=== PATIENT | female | born 1935 | race Caucasian/White ===

== ENCOUNTER → 2016-09-29 | Outpatient (CLI) | payer MEDICARE | LOC: NC 10:31 | PROVIDERS: ATTEND Family Medicine | DX: I48.91 Unspecified atrial fibrillation (principal) ==

== ENCOUNTER → 2016-10-13 | Outpatient (CLI) | payer MEDICARE | LOC: GMAB 09:44 | PROVIDERS: ATTEND Family Medicine | DX: I48.91 Unspecified atrial fibrillation (principal) ==

== ENCOUNTER → 2016-10-20 | Outpatient (CLI) | payer MEDICARE | LOC: NC 10:10 | PROVIDERS: ATTEND Family Medicine | DX: I48.91 Unspecified atrial fibrillation (principal) ==

== ENCOUNTER → 2016-10-27 | Outpatient (CLI) | payer MEDICARE | LOC: NC 09:39 | PROVIDERS: ATTEND Family Medicine | DX: I48.91 Unspecified atrial fibrillation (principal) ==

== ENCOUNTER → 2016-11-03 | Outpatient (CLI) | payer MEDICARE | END | disposition home or self-care (01) | LOC: YCHH 12:19 | PROVIDERS: ATTEND Family Medicine | DX: I48.91 Unspecified atrial fibrillation (principal) ==

== ENCOUNTER → 2016-12-01 | Outpatient (CLI) | payer MEDICARE | END | disposition home or self-care (01) | LOC: GMAB 09:55 | PROVIDERS: ATTEND Family Medicine | DX: I48.91 Unspecified atrial fibrillation (principal) ==

== ENCOUNTER → 2016-12-08 | Outpatient (CLI) | payer MEDICARE | END | disposition home or self-care (01) | LOC: NC 10:27 | PROVIDERS: ATTEND Family Medicine | DX: I48.91 Unspecified atrial fibrillation (principal) ==

== ENCOUNTER → 2016-12-22 | Outpatient (CLI) | payer MEDICARE | END | disposition home or self-care (01) | LOC: NC 10:45 | PROVIDERS: ATTEND Family Medicine | DX: I48.91 Unspecified atrial fibrillation (principal) ==

== ENCOUNTER → 2017-01-05 | Outpatient (CLI) | payer MEDICARE | END | disposition home or self-care (01) | LOC: NC 15:02 | PROVIDERS: ATTEND Family Medicine | DX: I48.91 Unspecified atrial fibrillation (principal) ==

== ENCOUNTER → 2017-02-02 | Outpatient (CLI) | payer MEDICARE | END | disposition home or self-care (01) | LOC: NC 10:33 | PROVIDERS: ATTEND Family Medicine | DX: I48.91 Unspecified atrial fibrillation (principal); E11.40 Type 2 diabetes mellitus with diabetic neuropathy, unspecified ==

== ENCOUNTER → 2017-02-04 | Outpatient (CLI) | payer MEDICARE | END | disposition home or self-care (01) | LOC: GMAB 14:12 | PROVIDERS: ATTEND Family Medicine | DX: I48.0 Paroxysmal atrial fibrillation (principal); E11.40 Type 2 diabetes mellitus with diabetic neuropathy, unspecified; G60.3 Idiopathic progressive neuropathy; E04.1 Nontoxic single thyroid nodule; R30.0 Dysuria; E55.9 Vitamin D deficiency, unspecified ==

== ENCOUNTER → 2017-02-09 | Outpatient (CLI) | payer MEDICARE ==
--- NOTE | 2017-02-09 14:21 | US ---
EXAM DESCRIPTION: Thyroid CLINICAL HISTORY: 81 years Female, NODULE COMPARISON: June 16, 2016 FINDINGS: Sonographic evaluation of the thyroid demonstrates the right lobe 4.2 x 1.5 x 1.3 cm in the left lobe 5.0 x 1.6 x 2.1 cm with a 3 mm isthmus. On the right, a 10 x 6 x 4 mm hypoechoic nodule in the upper pole is present with a 12 x 10 x 9 mm mildly hypoechoic solid nodule in the lower pole and an elongated at 13 x 8 x 6 mm nodule in the mid right lobe. These nodules are essentially unchanged from prior study in May 2016. On the left, a hypoechoic 1.4 x 1.4 x 0.6 cm wider than tall nodule in the upper pole is present. In the lower pole a 1.3 x 1.3 x 1.1 cm nodule is hypoechoic. In the mid thyroid a 9 x 10 x 11 mm nodule is hypoechoic posteriorly. IMPRESSION: Stable multinodular goiter with multiple hypoechoic small to moderate-sized nodules unchanged from prior studies. Consider one-year follow-up for stability. Electronically signed by: Dane Castillo MD 02/09/2017 2:20 PM CDT
== END | disposition home or self-care (01) ==
LOC: US 09:26
PROVIDERS: ATTEND Family Medicine
DX: E04.1 Nontoxic single thyroid nodule (principal)

== ENCOUNTER → 2017-03-02 | Outpatient (CLI) | payer MEDICARE | END | disposition home or self-care (01) | LOC: NC 11:40 | PROVIDERS: ATTEND Family Medicine | DX: I48.91 Unspecified atrial fibrillation (principal) ==

== ENCOUNTER → 2017-03-30 | Outpatient (CLI) | payer MEDICARE | LOC: NC 09:43 | PROVIDERS: ATTEND Family Medicine | DX: I48.91 Unspecified atrial fibrillation (principal) ==

== ENCOUNTER → 2017-05-25 | Outpatient (CLI) | payer MEDICARE | END | disposition home or self-care (01) | LOC: NC 09:47 | PROVIDERS: ATTEND Family Medicine | DX: I48.91 Unspecified atrial fibrillation (principal) ==

== ENCOUNTER → 2017-06-15 | Outpatient (CLI) | payer MEDICARE | END | disposition home or self-care (01) | LOC: NC 09:32 | PROVIDERS: ATTEND Family Medicine | DX: E11.40 Type 2 diabetes mellitus with diabetic neuropathy, unspecified (principal); I48.91 Unspecified atrial fibrillation; I11.0 Hypertensive heart disease with heart failure; I50.9 Heart failure, unspecified ==

== ENCOUNTER → 2017-07-20 | Outpatient (CLI) | payer MEDICARE | END | disposition home or self-care (01) | LOC: NC 11:06 | PROVIDERS: ATTEND Family Medicine | DX: I48.91 Unspecified atrial fibrillation (principal) ==

== ENCOUNTER → 2017-08-17 | Outpatient (CLI) | payer MEDICARE | END | disposition home or self-care (01) | LOC: NC 11:01 | PROVIDERS: ATTEND Family Medicine | DX: I48.91 Unspecified atrial fibrillation (principal) ==

== ENCOUNTER → 2017-09-14 | Outpatient (CLI) | payer MEDICARE | END | disposition home or self-care (01) | LOC: NC 11:38 | PROVIDERS: ATTEND Family Medicine | DX: I48.91 Unspecified atrial fibrillation (principal) ==

== ENCOUNTER → 2017-10-12 | Outpatient (CLI) | payer MEDICARE | END | disposition home or self-care (01) | LOC: NC 10:48 | PROVIDERS: ATTEND Family Medicine | DX: I48.91 Unspecified atrial fibrillation (principal) ==

== ENCOUNTER → 2017-11-10 | Outpatient (CLI) | payer MEDICARE | LOC: NC 14:30 | PROVIDERS: ATTEND Family Medicine | DX: I48.91 Unspecified atrial fibrillation (principal) ==

== ENCOUNTER → 2017-12-07 | Outpatient (CLI) | payer MEDICARE | LOC: NC 11:29 | PROVIDERS: ATTEND Family Medicine | DX: I48.91 Unspecified atrial fibrillation (principal) ==

== ENCOUNTER 2017-12-18 17:09 | Emergency (ER) | payer MEDICARE ==
--- NOTE | 2017-12-18 18:05 | RAD ---
EXAM DESCRIPTION: Hip,Right 2 Views CLINICAL HISTORY: 82 years, Female, HIP PAIN COMPARISON: None TECHNIQUE: AP and frog leg lateral views of the hip FINDINGS: Two-view right hip shows no fracture or bone lesion. Bones are osteopenic or osteoporotic. Degenerative changes are seen in the pubic symphysis. Inferior pubic ramus is questionable but no definite cortical break is seen. Depending upon patient's symptoms, CT of the pelvis might be considered. Sacrum appears intact. No hip dislocation. Normal ileum. There is no joint space abnormality observed. IMPRESSION: No definite fracture. Electronically signed by: Todd Quinones MD 12/18/2017 6:02 PM CDT
--- NOTE | 2017-12-18 18:06 | RAD ---
EXAM DESCRIPTION: Pelvis CLINICAL HISTORY: 82 years Female, HIP PAIN COMPARISON: None. TECHNIQUE: Single x-ray view of the pelvis and proximal femurs FINDINGS: No fracture. No dislocation. Diffuse bony demineralization suggests osteoporosis. Degenerative narrowing of the pubic symphysis with mild degenerative narrowing of the medial hip joints. Vascular calcification is prominent. Sacrum is obscured by overlying gas and fecal material. IMPRESSION: No fracture or dislocation. Electronically signed by: Todd Quinones MD 12/18/2017 6:03 PM CDT
[2017-12-18] MEDS ORDERED: fentaNYL CITRATE INJ 50 MCG/ML AMP IM ONE (18:12)
[2017-12-18] MEDS ORDERED: cloNIDine HCL 0.1 MG TAB PO ONE (19:25)
--- NOTE | 2017-12-18 20:52 | ED.PDOC ---
History of Present Illness - General Chief Complaint: General Stated Complaint: right hip pain Time Seen by Provider: 12/18/17 17:33 Source: patient, family Exam Limitations: no limitations Additional Information: C/O PAIN TO R HIP, SHARP, NON RADIATING. INCREASE WITH MOTION. NO FALLS OR TRAUMA BUT PT STATES SHE WOKE UP THIS AM WITH HER R LEG CROSSED OVER THE LEFT. PAIN POST ASPECT R HIP - History of Present Illness Severity: moderate Improving Factors: nothing Worsening Factors: nothing Associated Symptoms: denies symptoms Allergies/Adverse Reactions: Allergies NO KNOWN ALLERGY Allergy (Verified 12/18/17 17:42) Home Medications: Ambulatory Orders Indomethacin 50 mg PO TID PRN #14 cap 12/18/17 Methylprednisolone [Medrol Dose Damon] 4 mg PO DAILY #1 tab 12/18/17 Review of Systems - Review of Systems Constitutional: Denies: chills, fever EENTM: States: no symptoms reported Respiratory: States: no symptoms reported Cardiology: States: no symptoms reported Gastrointestinal/Abdominal: States: no symptoms reported Genitourinary: Denies: dysuria, hematuria Musculoskeletal: States: other - PAIN TO HIP. Denies: back pain, neck pain Skin: States: no symptoms reported Neurological: Denies: numbness, weakness Endocrine: States: no symptoms reported Past Medical History (General) - Patient Medical History Hx Seizures: Yes Hx Stroke: No Hx Dementia: No Hx Asthma: No Hx Cardiac Disorders: Yes - A-fib Hx Congestive Heart Failure: No Hx Pacemaker: No Hx Hypertension: Yes Hx Thyroid Disease: No Hx Diabetes: Yes - IDDM Hx Gastroesophageal Reflux: No Hx Renal Disease: No Hx Cancer: Yes - skin cancer Hx of HIV: No Hx MRSA: No Surgical History: other - Vaccination History Hx Influenza Vaccination: No Hx Pneumococcal Vaccination: - unknown - Social History Hx Tobacco Use: No - Female History Patient is a Female of Child Bearing Age (10 -59 yrs old): No Family Medical History - Family History Mother Family History: Unknown Living Status: Physical Exam - Physical Exam General Appearance: Alert, Frail, No apparent distress Eye Exam: bilateral normal Ears, Nose, Throat: hearing grossly normal, normal ENT inspection Neck: non-tender, full range of motion, supple Respiratory: lungs clear, normal breath sounds Cardiovascular/Chest: regular rate, rhythm, no murmur Gastrointestinal/Abdominal: normal bowel sounds, soft, no organomegaly Back Exam: normal inspection, no vertebral tenderness Extremity: normal range of motion, normal inspection, other - PAIN TO PALPATION R SCIATIC AREA, NO EVIDENCE OF TRAUMA, NVI, Neurologic: no motor/sensory deficits, normal mood/affect, oriented x 3 Skin Exam: normal color, warm/dry Lymphatic: no adenopathy Progress - Progress Progress: 12/18/17 20:55 FEELS BETTER, AMBULATED WITHOUT DIFFICULTY. - EKG/XRAY/CT XRAY: hip - SONIYA Departure - Departure Clinical Impression: Diabetes 1.5, managed as type 2 Sciatica Qualifiers: Laterality: right Qualified Code(s): M54.31 - Sciatica, right side Hypertension Qualifiers: Hypertension type: essential hypertension Qualified Code(s): I10 - Essential ( primary) hypertension Time of Disposition: 20:57 Disposition: Discharge to Home or Self Care Condition: Good Departure Forms: ED Discharge - Pt. Copy, Patient Portal Self Enrollment Instructions: DI for Sciatica Referrals: Cecil Vasquez MD [Primary Care Provider] - 1-2 Weeks Prescriptions: Indomethacin 50 mg PO TID PRN #14 cap PRN Reason: Pain Methylprednisolone [Medrol Dose Damon] 4 mg PO DAILY #1 tab Home Medications: Ambulatory Orders Indomethacin 50 mg PO TID PRN #14 cap 12/18/17 Methylprednisolone [Medrol Dose Damon] 4 mg PO DAILY #1 tab 12/18/17
[2017-12-18 21:20] VITALS: BP 177/99; TEMP 96; O2SAT 99
== END 2017-12-18 21:19 | disposition home or self-care (01) ==
LOC: ER 17:09
DX: M54.31 Sciatica, right side (principal); E11.9 Type 2 diabetes mellitus without complications; I10 Essential (primary) hypertension; I48.91 Unspecified atrial fibrillation; Z85.828 Personal history of other malignant neoplasm of skin
CPT/HCPCS: 36416; 72170; 73502; 82948; J3010

== ENCOUNTER → 2018-01-04 | Outpatient (CLI) | payer MEDICARE | END | disposition home or self-care (01) | LOC: NC 18:02 | PROVIDERS: ATTEND Family Medicine | DX: I48.91 Unspecified atrial fibrillation (principal) ==

== ENCOUNTER → 2018-02-01 | Outpatient (CLI) | payer MEDICARE | LOC: NC 09:06 | PROVIDERS: ATTEND Family Medicine | DX: I48.91 Unspecified atrial fibrillation (principal); E11.40 Type 2 diabetes mellitus with diabetic neuropathy, unspecified; I11.0 Hypertensive heart disease with heart failure; I50.9 Heart failure, unspecified ==

== ENCOUNTER → 2018-02-22 | Outpatient (CLI) | payer MEDICARE | LOC: NC 10:56 | PROVIDERS: ATTEND Family Medicine | DX: I48.91 Unspecified atrial fibrillation (principal) ==

== ENCOUNTER → 2018-03-22 | Outpatient (CLI) | payer MEDICARE | LOC: NC 15:25 | PROVIDERS: ATTEND Family Medicine | DX: I48.91 Unspecified atrial fibrillation (principal); I50.9 Heart failure, unspecified; I11.0 Hypertensive heart disease with heart failure ==

== ENCOUNTER 2018-04-07 09:40 | Emergency (ER) | payer MEDICARE ==
[2018-04-07 09:54] VITALS: TEMP 98.6; O2SAT 97
--- NOTE | 2018-04-07 10:46 | CT ---
EXAM DESCRIPTION: Head. CT head without contrast. CLINICAL HISTORY: Headache for 4 days. Patient on blood thinners. COMPARISON: 08/13/2013. TECHNIQUE: Multiple axial images of the head without contrast. Multiplanar reformatted images. This exam was performed according to our departmental dose-optimization program, which includes automated exposure control, adjustment of the mA and/or kV according to patient size and/or use of iterative reconstruction technique. FINDINGS: There is no CT evidence of intracranial hemorrhage, mass effect, or large territory infarction. Moderate generalized volume loss. Moderate patchy supratentorial white matter hypodensities. There are no abnormal extra-axial fluid collections. Calcific plaque in the visualized arteries. There is no acute calvarial defect. Small bilateral mastoid effusions. Completely opacified right maxillary sinus. Moderate mucosal thickening in the ethmoid air cells. IMPRESSION: 1. No CT evidence of an acute intracranial abnormality. If there is concern for an acute or subacute infarct, consider follow-up MRI. 2. Senescent changes. 3. Bilateral mastoid effusions and paranasal sinus inflammatory changes. Electronically signed by: Duane Estrada MD 04/07/2018 10:44 AM CDT
[2018-04-07 10:51] VITALS: BP 141/64
[2018-04-07] MEDS ORDERED: predniSONE 20 MG TAB PO ONE (10:55)
--- NOTE | 2018-04-07 10:58 | ED.PDOC ---
History of Present Illness - General Chief Complaint: General Time Seen by Provider: 04/07/18 09:53 Source: patient, family Exam Limitations: no limitations - History of Present Illness Initial Comments: medications 2-year-old female presenting to the emergency room secondary to persistent headache last for 5 days along with some moderately elevated blood pressures. She does take a blood thinner. It was advised by home health that she present for an evaluation. No significant altered mental status. She was seen approximately 5 days ago and is being treated for a left inner ear infection. The patient does have boggy nares. She does have some discomfort to the left periauricular area but also does have a diffuse tension headache. No nausea or vomiting. Normal oral intake. No fevers. Systolic blood pressures have been running from 150-200. Timing/Duration: 1 week Severity: moderate Improving Factors: nothing Worsening Factors: nothing Associated Symptoms: malaise Allergies/Adverse Reactions: Allergies NO KNOWN ALLERGY Allergy (Verified 12/18/17 17:42) Home Medications: Ambulatory Orders Indomethacin 50 mg PO TID PRN #14 cap 12/18/17 Methylprednisolone [Medrol Dose Damon] 4 mg PO DAILY #1 tab 12/18/17 predniSONE [Prednisone] 20 mg PO DAILY #5 tab 04/07/18 Review of Systems - Review of Systems Constitutional: States: malaise EENTM: States: ear pain, nose congestion Respiratory: States: no symptoms reported Cardiology: States: no symptoms reported Gastrointestinal/Abdominal: States: no symptoms reported Genitourinary: States: no symptoms reported Musculoskeletal: States: no symptoms reported Skin: States: no symptoms reported Neurological: States: headache Endocrine: States: no symptoms reported All other Systems: No Change from Baseline Past Medical History (General) - Patient Medical History Hx Seizures: Yes Hx Stroke: No Hx Dementia: No Hx Asthma: No Hx Cardiac Disorders: Yes - A-fib Hx Congestive Heart Failure: No Hx Pacemaker: No Hx Hypertension: Yes Hx Thyroid Disease: No Hx Diabetes: Yes - IDDM Hx Gastroesophageal Reflux: No Hx Renal Disease: No Hx Cancer: Yes - skin cancer Hx of HIV: No Hx MRSA: No Surgical History: other - Vaccination History Hx Influenza Vaccination: No Hx Pneumococcal Vaccination: No - unknown - Social History Hx Tobacco Use: No Family Medical History - Family History Mother Family History: Unknown Living Status: Physical Exam - Physical Exam General Appearance: Alert, Comfortable, No apparent distress Eye Exam: bilateral normal Ears, Nose, Throat: nasal congestion, other - the patient does have a moderate amount of soft ear wax to the left ear canal. Right ear drum shows a air-fluid level that is significant as well as some increased pressure but no obvious infection. No mastoid tenderness to palpation. No pain over the left temporal artery. Neck: full range of motion, supple Respiratory: lungs clear, normal breath sounds, no respiratory distress, no accessory muscle use Cardiovascular/Chest: normal peripheral pulses, no edema, other - regular rate Peripheral Pulses: radial,right: 2+, radial,left: 2+, dorsalis pedis,right: 2+, dorsalis pedis,left: 2+ Gastrointestinal/Abdominal: non tender, soft Rectal Exam: deferred Extremity: non-tender, no pedal edema, no calf tenderness, normal capillary refill Neurologic: hoister II-XII nml as tested, alert, normal mood/affect Skin Exam: normal color Comments: Vital Signs - 24 hr 04/07/18 04/07/18 04/07/18 09:49 10:00 10:40 Temperature 98.6 F Pulse Rate [ 88 84 84 left brachial] Respiratory 16 16 Rate Blood Pressure 176/84 141/64 [left brachial] O2 Sat by Pulse 97 97 Oximetry Progress - Progress Progress: 04/07/18 10:59 the patient's 82-year-old female presenting to emergency room with her family secondary to some persistently elevated blood pressures at home along with a headache for the last [address] scan of the head shows no evidence of any acute intracranial pathology however she does have a significant right maxillary sinusitis and some fluid levels in bilateral mastoids. the patient is already taking amoxicillin and is almost prison through the course. She should complete the course of amoxicillin. I'm going to add prednisone 20 mg by mouth every morning for the next 5 days to help reduce inflammation and hopefully help reduce the headache. For now I would recommend discontinuing the other [id number] anti-inflammatories as they are likely pushing the blood pressures up. She can take Tylenol 500 mg every 6- 8 hours for the next 4-5 days to help with any discomfort. She needs to be kept well hydrated. ER warnings were given for any evidence of any significant worsening. blood pressures do fall back into the normal range from the patient is allowed to rest and relax. Blood pressures here have fallen down to the 140s over 70s. Continue home health. Departure - Departure Clinical Impression: Tension headache Maxillary sinusitis, acute Qualifiers: Recurrence: not specified as recurrent Qualified Code(s): J01.00 - Acute maxillary sinusitis, unspecified Hypertension Qualifiers: Hypertension type: essential hypertension Qualified Code(s): I10 - Essential ( primary) hypertension Disposition: Discharge to Home or Self Care Condition: Fair Departure Forms: ED Discharge - Pt. Copy, Patient Portal Self Enrollment Instructions: Sinus Headache (DC) Diet: regular diet Activity: increase activity as tolerated Referrals: Cecil Vasquez MD [Primary Care Provider] - 1-2 Weeks Prescriptions: predniSONE [Prednisone] 20 mg PO DAILY #5 tab Home Medications: Ambulatory Orders Indomethacin 50 mg PO TID PRN #14 cap 12/18/17 Methylprednisolone [Medrol Dose Damon] 4 mg PO DAILY #1 tab 12/18/17 predniSONE [Prednisone] 20 mg PO DAILY #5 tab 04/07/18 Additional Instructions: the patient's 82-year-old female presenting to emergency room with her family secondary to some persistently elevated blood pressures at home along with a headache for the last [address] scan of the head shows no evidence of any acute intracranial pathology however she does have a significant right maxillary sinusitis and some fluid levels in bilateral mastoids. the patient is already taking amoxicillin and is almost prison through the course. She should complete the course of amoxicillin. I'm going to add prednisone 20 mg by mouth every morning for the next 5 days to help reduce inflammation and hopefully help reduce the headache. For now I would recommend discontinuing the other [id number] anti-inflammatories as they are likely pushing the blood pressures up. She can take Tylenol 500 mg every 6- 8 hours for the next 4-5 days to help with any discomfort. She needs to be kept well hydrated. ER warnings were given for any evidence of any significant worsening. blood pressures do fall back into the normal range from the patient is allowed to rest and relax. Blood pressures here have fallen down to the 140s over 70s. Continue home health.
== END 2018-04-07 11:15 | disposition home or self-care (01) ==
LOC: ER 09:40
DX: G44.209 Tension-type headache, unspecified, not intractable (principal); J01.00 Acute maxillary sinusitis, unspecified; I10 Essential (primary) hypertension; I48.91 Unspecified atrial fibrillation; E11.9 Type 2 diabetes mellitus without complications; Z85.828 Personal history of other malignant neoplasm of skin

== ENCOUNTER → 2018-04-19 | Outpatient (CLI) | payer MEDICARE | LOC: NC 17:18 | PROVIDERS: ATTEND Family Medicine | DX: I48.91 Unspecified atrial fibrillation (principal) ==

== ENCOUNTER → 2018-05-25 | Outpatient (CLI) | payer MEDICARE | LOC: NC 10:15 | PROVIDERS: ATTEND Family Medicine | DX: R30.0 Dysuria (principal) ==

== ENCOUNTER → 2018-05-31 | Outpatient (CLI) | payer MEDICARE | LOC: NC 16:30 | PROVIDERS: ATTEND Family Medicine | DX: I48.91 Unspecified atrial fibrillation (principal) ==

== ENCOUNTER → 2018-06-14 | Outpatient (CLI) | payer MEDICARE | LOC: NC 09:58 | PROVIDERS: ATTEND Family Medicine | DX: R30.0 Dysuria (principal) ==

== ENCOUNTER → 2018-06-25 | Outpatient (CLI) | payer MEDICARE | LOC: NC 09:41 | PROVIDERS: ATTEND Family Medicine | DX: I50.9 Heart failure, unspecified (principal); R30.0 Dysuria ==

== ENCOUNTER → 2018-06-28 | Outpatient (CLI) | payer MEDICARE | LOC: GMAE 14:59 | PROVIDERS: ATTEND Family Medicine | DX: I10 Essential (primary) hypertension (principal) ==

== ENCOUNTER → 2018-08-03 | Outpatient (CLI) | payer MEDICARE | LOC: NC 09:43 | PROVIDERS: ATTEND Family Medicine | DX: I48.91 Unspecified atrial fibrillation (principal) ==

== ENCOUNTER → 2018-08-31 | Outpatient (CLI) | payer MEDICARE | LOC: NC 10:07 | PROVIDERS: ATTEND Family Medicine | DX: I48.91 Unspecified atrial fibrillation (principal) ==

== ENCOUNTER → 2018-09-27 | Outpatient (CLI) | payer MEDICARE | LOC: NC 12:23 | PROVIDERS: ATTEND Family Medicine | DX: I48.91 Unspecified atrial fibrillation (principal) ==

== ENCOUNTER → 2018-10-04 | Outpatient (CLI) | payer MEDICARE | LOC: NC 11:00 | PROVIDERS: ATTEND Family Medicine | DX: E11.40 Type 2 diabetes mellitus with diabetic neuropathy, unspecified (principal) ==

== ENCOUNTER → 2018-10-26 | Outpatient (CLI) | payer MEDICARE | LOC: GMAE 09:39 | PROVIDERS: ATTEND Family Medicine | DX: I48.91 Unspecified atrial fibrillation (principal) ==

== ENCOUNTER → 2018-11-22 | Outpatient (CLI) | payer MEDICARE | LOC: NC 10:43 | PROVIDERS: ATTEND Family Medicine | DX: I48.91 Unspecified atrial fibrillation (principal) ==

== ENCOUNTER 2018-12-01 17:38 | Inpatient (IN) | payer MEDICARE ==
--- NOTE | 2018-12-01 18:41 | RAD ---
EXAM DESCRIPTION: Pelvis CLINICAL HISTORY: fall with pain and inability to get up COMPARISON: None FINDINGS: Single view(s) submitted. There is a mildly displaced fracture of the left superior pubic ramus and probable fracture of the left inferior pubic ramus. No other fracture or dislocation is seen. IMPRESSION: Left pubic rami fractures. Electronically signed by: Isma Abdi 12/01/2018 6:38 PM [facility]
--- NOTE | 2018-12-01 18:42 | RAD ---
EXAM: 2 VIEWS LEFT HIP RADIOGRAPHS CLINICAL INDICATION: Pain post fall COMPARISON: None. FINDINGS: The proximal left femur is intact. Acute appearing left superior ramus fracture possibly extending into the left acetabulum. No radiopaque soft tissue foreign bodies. IMPRESSION: Acute appearing left superior pubic ramus fracture possibly extending into the acetabulum. The proximal left femur is intact. Electronically signed by: Aldair Osborne MD 12/01/2018 6:39 PM [employer]HA[employer] HEL[employer]
[2018-12-01] MEDS ORDERED: MORPHINE SULFATE INJ 10 MG/ML VIAL IV ONE (18:46)
--- NOTE | 2018-12-01 19:35 | CT ---
NONCONTRAST PELVIC CT EXAMINATION. HISTORY: Pain. Fracture? COMPARISONS: Today's pelvic radiograph. PROCEDURE: Using helical technique, thin section axial images were performed through the pelvis without the administration of intravenous or oral contrast material. FINDINGS: Nondisplaced fractures involving the medial inferior left pubic ramus and base of the left superior pubic ramus. The left superior ramus nondisplaced fracture extends into the mid to lower aspect of the left acetabulum. The proximal femurs are intact. Subtle minimally displaced fracture of the inferior left sacral alum probably extending into nondisplaced left sacroiliac joint. Severe degenerative disease partially visualized lower lumbosacral spine with 7 mm degenerative L5/S1 spondylolisthesis. Bony L5/S1 neural foramina are moderately to severely narrowed. No free pelvic fluid or pelvic wall hematoma. Martin catheter is in the nondistended urinary bladder. The atrophied uterus appears grossly normal. No groin hernia or pelvic floor hernia. Proximal right femur is intact. IMPRESSION: 1. Nondisplaced fractures of the left inferior and superior pubic rami. Nondisplaced superior left pubic ramus fracture appears to extend into the mid and lower aspect of the left acetabulum. 2. Subtle minimally displaced fracture in the inferior left sacral alum probably extending into the nondisplaced left sacroiliac joint. The pubic symphysis is intact. 3. Severe degenerative disease at the L5/S1 level as described above. If clinical concern persists, post intravenous contrast and post oral contrast abdomen and pelvic CT examination should be performed for further evaluation. This exam was performed according to our departmental dose-optimization program, which includes automated exposure control, adjustment of the mA and/or kV according to patient size and/or use of iterative reconstruction technique. Electronically signed by: Aldair Osborne MD 12/01/2018 7:31 PM [employer] PER[employer]MAN[employer]INE[employer]
[2018-12-01] MEDS ORDERED: SOD CHL 3% *HYPERTONIC* 500ML 160 ML IVS ONE (20:08)
--- NOTE | 2018-12-01 20:18 | ED.PDOC ---
History of Present Illness - General Chief Complaint: Lower Extremity Injury Stated Complaint: L hip discomfort Time Seen by Provider: 12/01/18 17:50 Source: patient Exam Limitations: no limitations - History of Present Illness Initial Comments: the patient's 82-year-old female presenting to emergency room after having had a fall at home. She tripped over the dog and landed on her back left side. She was unable to get up after. The patient apparently has a history of some congestive heart failure and atrial fibrillation as well as diabetes and some mild dementia. The patient is pleasant and cooperative. She moves the ankle well and is able to move the knee without difficulty. She has no tenderness to palpation over the lateral femur. Pain is primarily in the left inguinal area. She did not have any other injuries other than a small abrasion to her right forearm from her dog. The patient is family of our EMS personnel. The patient is having significant pain. Initial blood pressures do reflect that. She is on Coumadin. Timing/Duration: momentarily Severity: severe Improving Factors: immobilization Worsening Factors: movement Associated Symptoms: denies symptoms Allergies/Adverse Reactions: Allergies NO KNOWN ALLERGY Allergy (Verified 12/18/17 17:42) Home Medications: Ambulatory Orders Indomethacin 50 mg PO TID PRN #14 cap 12/18/17 Methylprednisolone [Medrol Dose Damon] 4 mg PO DAILY #1 tab 12/18/17 predniSONE [Prednisone] 20 mg PO DAILY #5 tab 04/07/18 Review of Systems - Review of Systems Constitutional: States: no symptoms reported EENTM: States: no symptoms reported Respiratory: States: no symptoms reported Cardiology: States: no symptoms reported Gastrointestinal/Abdominal: States: no symptoms reported - inguinal pain Genitourinary: States: no symptoms reported Musculoskeletal: States: see HPI Skin: States: no symptoms reported Neurological: States: no symptoms reported Endocrine: States: no symptoms reported All other Systems: No Change from Baseline Past Medical History (General) - Patient Medical History Hx Seizures: No Hx Stroke: No Hx Dementia: No Hx Asthma: No Hx of COPD: No Hx Cardiac Disorders: Yes Hx Congestive Heart Failure: No Hx Pacemaker: No Hx Hypertension: Yes Hx Thyroid Disease: No Hx Diabetes: Yes Hx Gastroesophageal Reflux: No Hx Renal Disease: No Hx Cancer: No Hx of HIV: No Hx Hepatitis C: No Hx MRSA: No - Vaccination History Hx Tetanus, Diphtheria Vaccination: No Hx Influenza Vaccination: No Hx Pneumococcal Vaccination: No - Social History Hx Tobacco Use: No Hx Chewing Tobacco Use: No Hx Alcohol Use: No Hx Substance Use: No Hx Substance Use Treatment: No Hx Depression: No Hx Physical Abuse: No Hx Emotional Abuse: No Hx Suspected Abuse: No - Female History Patient : No Family Medical History - Family History Mother Family History: Unknown Living Status: Hx Cardiac Disease: Yes - mom Physical Exam - Physical Exam General Appearance: Alert, Frail, Obvious distress - from pain Eye Exam: bilateral normal Ears, Nose, Throat: hearing grossly normal, normal ENT inspection Neck: full range of motion, supple Respiratory: lungs clear, normal breath sounds, no respiratory distress, no accessory muscle use Cardiovascular/Chest: normal peripheral pulses, no edema, other - regular rate Peripheral Pulses: radial,right: 2+, radial,left: 2+, dorsalis pedis,right: 2+, dorsalis pedis,left: 2+ Gastrointestinal/Abdominal: non tender, soft Rectal Exam: other - the patient does have pain to palpation over the symphysis pubis. Extremity: normal range of motion - passive range of motion of the left hip is preserved. 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 They're not yet in the computer. Progress - Progress Progress: 12/01/18 20:20 the patient is an 82-year-old female presenting to the emergency room after having tripped over her dog. She appears to have sustained several nondisplaced or minimally displaced pelvic fractures on the left side. Please see CT report for details. The patient is currently unable to perform her activities of daily living and she is requiring some IV pain medications. She is going to be placed in the hospital for these reasons. Additionally the patient is found to have significant hyponatremia and is receiving 160 cc total of 3% saline slowly tonight. She will need to have a sodium level rechecked in the morning. Source of the hyponatremia is uncertain however. She does take a diuretic and she does take Dilantin which may be contributing. Chest x-ray is pending at this time as well as the urinalysis. Martin catheter is in place secondary to pain with getting up to go to the bathroom. The patient is on Coumadin and INR is slightly subtherapeutic at 1.8 but increasing the dose may not be advisable for a few days. The patient is a diabetic and is going to require diabetes management while in house. Orthopedics can be consulted in the morning for plan of care for her rehabilitation schedule. Obviously the patient is not a good candidate for any real surgical intervention and will likely require conservative care. Admitted for care of problems above. - Results/Orders Results/Orders: Laboratory Tests 12/01/18 12/01/18 12/01/18 18:09 18:09 18:09 WBC 13.2 H RBC 4.08 L Hgb 12.8 Hct 37.9 MCV 92.9 MCH 31.5 H MCHC 33.9 RDW 13.8 Plt Count 223 MPV 8.8 Absolute Neuts (auto) 10.00 H Absolute Lymphs (auto) 1.90 Absolute Monos (auto) 0.90 H Absolute Eos (auto) 0.30 Absolute Basos (auto) 0.10 Neutrophils % 75.9 Lymphocytes % 14.5 L Monocytes % 6.7 Eosinophils % 2.1 Basophils % 0.8 PT 17.8 H INR 1.79 H PTT (SP) 28.3 Sodium 127 L Potassium 4.1 Chloride 92 L Carbon Dioxide 24 Anion Gap 15.1 BUN 21 H Creatinine 0.75 BUN/Creatinine Ratio 28.0 H Random Glucose 238 H Serum Osmolality 265.9 L Calcium 9.1 Total Bilirubin 0.7 AST 25 ALT 25 Alkaline Phosphatase 73 Serum Total Protein 6.8 Albumin 3.7 Globulin 3.1 Albumin/Globulin Ratio 1.2 Departure - Departure Clinical Impression: Uncontrolled pain, Inability to perform activities of daily living, Hyponatremia, Insulin dependent diabetes mellitus Multiple pelvic fractures Qualifiers: Encounter type: initial encounter Fracture type: closed Fracture alignment: with stable disruption of pelvic ring Qualified Code(s): S32.810A - Multiple fractures of pelvis with stable disruption of pelvic ring, initial encounter for closed fracture Fall at home Qualifiers: Encounter type: initial encounter Qualified Code(s): W19.XXXA - Unspecified fall, initial encounter; Y92.009 - Unspecified place in unspecified non- institutional (private) residence as the place of occurrence of the external cause Disposition: Admit Patient Departure Forms: ED Discharge - Pt. Copy, Patient Portal Self Enrollment Home Medications: Ambulatory Orders Indomethacin 50 mg PO TID PRN #14 cap 12/18/17 Methylprednisolone [Medrol Dose Dmaon] 4 mg PO DAILY #1 tab 12/18/17 predniSONE [Prednisone] 20 mg PO DAILY #5 tab 04/07/18 Decision To Admit - Decistion To Admit Decision to Admit Reason: Medical Nature Decision to Admit Date: 12/01/18 Decision to Admit Time: 20:25
--- NOTE | 2018-12-01 21:02 | RAD ---
EXAM: AP CHEST RADIOGRAPH CLINICAL INDICATION: Hyponatremia. COMPARISON: Compared to the chest radiograph from August 13, 2013. FINDINGS: Today's radiograph is rotated to the left. Cardiac size and pulmonary vasculature remain normal. Unchanged left basilar scar. The lungs are otherwise clear. No pleural effusions. No pneumothorax, pneumomediastinum or free peritoneal gas. No hilar or mediastinal lymphadenopathy. No mediastinal widening. Unchanged remotely healed proximal left humeral fracture. Partially visualized degenerative disease throughout the thoracic spine. Bones are intact on this single view. IMPRESSION: Unchanged portable AP chest radiograph. No acute cardiopulmonary disease. Electronically signed by: Aldair Osborne MD 12/01/2018 8:59 PM OPTIMIZATION SPECIALIST
[2018-12-01] MEDS ORDERED: SODIUM CHLORIDE 0.9% (FLUSH) 10 ML SYG IV PRN (21:26)
[2018-12-01] MEDS ORDERED: IV SET AND CAP CHANGE INJ INJ SCH (21:30)
--- NOTE | 2018-12-01 21:33 | HP ---
SUPERVISING PHYSICIAN: Deshaun Scott MD CHIEF COMPLAINT: Left sided hip pain. HISTORY OF PRESENT ILLNESS: This is an 82-year-old female who presented to the Emergency Room status post fall. She apparently tripped over her dog and landed on her left backside. She was unable to get up after that, but made it to the Emergency Room. Her family members are some EMS personnel. She does have a history of congestive heart failure and atrial fibrillation on chronic anticoagulation. In the Emergency Room, her workup included films. CT scan of the pelvis showed nondisplaced fractures of the left inferior and superior pubic rami. The nondisplaced superior left pubic ramus fracture appears to be extended into the mid and lower aspect of the left acetabulum. There is subtle minimally displaced fracture in the inferior left sacral alum, probably extending into the nondisplaced left sacroiliac joint. The pubic symphysis bone is still intact. She also was noted to have a low sodium of 127. Coag was 92, BUN 21, glucose 238, INR 1.79. White blood cell count 13.2, hemoglobin 12.8, platelet count 223. She was referred for admission for pain control and a morning consultation with orthopedic surgeon regarding her fractures. At time of examination, the patient is not complaining of any significant pain, however, with movement, she does have some left pain, mainly in the left inguinal area. Vital signs are acceptable. PAST MEDICAL HISTORY: 1. Congestive heart failure. 2. Atrial fibrillation on chronic warfarin therapy. 3. Diabetes. 4. Dementia. MEDICATIONS: 1. Digoxin 0.125 mg p.o. daily. 2. Lasix 40 mg p.o. daily. 3. Lantus 17 units subcutaneously daily. 4. Mobic 7.5 mg p.o. b.i.d. 5. Metoprolol 50 mg p.o. daily. 6. Multivitamin p.o. daily. 7. Phenytoin 100 mg p.o. 3 times daily. 8. Potassium 10 mEq p.o. daily. 9. Pravastatin 40 mg p.o. daily. 10. Ramipril 5 mg p.o. daily. 15. Warfarin 5 mg p.o. daily. ALLERGIES: NO KNOWN DRUG ALLERGIES. FAMILY HISTORY: Reviewed and noncontributory. SOCIAL HISTORY: Noncontributory. Nonsmoker, no illicit drugs. REVIEW OF SYSTEMS: CONSTITUTIONAL: No fever or chills. HEENT: Denies sore throat or nasal congestion. NECK: Denies neck pain. RESPIRATORY: No shortness of breath, cough, hemoptysis. CARDIOVASCULAR: Denies chest pain, palpitations or peripheral edema. GASTROINTESTINAL: No nausea, vomiting, diarrhea, constipation or abdominal pain. GENITOURINARY: No dysuria, frequency or flank pain. MUSCULOSKELETAL: Positive for left hip pain status post fall. No other muscle cramp ing or joint pain is noted. ENDOCRINE: No polydipsia, polyuria or polyphagia. No heat or cold intolerance. NEUROLOGIC: Positive for chronic confusion. She did not have any syncope or loss of consciousness, no seizures. PHYSICAL EXAMINATION: VITAL SIGNS: Blood pressure 150/82. Heart rate 93. Respiratory rate 18. Temperature 98.2. Oxygen saturation 94%. GENERAL: Ms. Sorensen is an 82-year-old female in no active distress currently. HEENT: Normocephalic, atraumatic. Pupils are equal and reactive. No nasal drainage. Throat with moist mucosa. NECK: Supple. Midline trachea. No jugular venous distention. CHEST: Symmetrical with equal rise and fall of the chest with inspiration and expiration. Lung sounds are clear to auscultation bilaterally. CARDIOVASCULAR: Regular rate and rhythm. Normal S1, S2. ABDOMEN: Soft. Positive bowel sounds. EXTREMITIES: Lower extremities with no edema. There is no rotation of the left lower extremity. Pulses are positive. There is some ankle edema bilaterally. Tenderness to palpation primarily left inguinal area. LABORATORY: Labs and films are as discussed in history of present illness. ASSESSMENT: 1. Status post fall resulting in nondisplaced pubic rami fractures and left acetabular fracture, nondisplaced. 2. Hypertension. 3. History of congestive heart failure without an acute exacerbation. 4. Hyponatremia secondary to chronic congestive heart failure. 5. Diabetes mellitus, type 2. 6. Chronic dementia. PLAN: At this time, the patient will be admitted to the Floor with pain control medication. I will resume her home medications which include her anticoagulation for her chronic atrial fibrillation. Hemoglobin is stable and not showing any signs of bleeding at this time. Vital signs are acceptable. I ordered a proton pump inhibitor for GI ulcer prophylaxis as well. Sliding scale insulin has been ordered for the duration of her hospitalization. Dr. Hernandez will be contacted in the morning for consultation. The patient did receive some 3% saline in the Emergency Room. I have discontinued this and started normal saline at 75 mL per hour. Recheck labs in the morning. #[id number] [facility]
[2018-12-01] MEDS: SODIUM CHLORIDE 0.9% 1000ML 1,000 ML IVS PRN (22:10)
[2018-12-01] MEDS ORDERED: GLUCAGON INJ 1 MG VIAL SUBCU PRN (22:47)
[2018-12-01] MEDS ORDERED: DEXTROSE 50% 25 GM/50 ML SYG IV PRN (22:47)
[2018-12-02] MEDS ORDERED: SODIUM CHLORIDE 0.9% 100ML 100 ML IVPB ONE ×2 (05:21→19:11)
[2018-12-02] MEDS ORDERED: PANTOPRAZOLE SODIUM IV 40 MG VIAL ONE ×2 (05:21→19:11)
[2018-12-02] MEDS: PANTOPRAZOLE INJECTION 40 MG in SODIUM CHLORIDE 0.9% 100ML 100 ML IVPB SCH (06:24)
[2018-12-02] MEDS: INSULIN LISPRO 100 UNITS/ML PEN SUBCU SCH ×4 (08:07→20:54)
[2018-12-02] MEDS: MORPHINE SULFATE INJ 10 MG/ML VIAL IV PRN ×2 (09:10→20:32)
[2018-12-02] MEDS: INSULIN DETEMIR 100 UNITS/ML PEN SUBCU SCH (10:00)
[2018-12-02] MEDS: PHENYTOIN SODIUM CAP EXTENDED 100 MG CAP PO SCH ×3 (10:02→20:34)
[2018-12-02] MEDS: MULTIPLE VITAMINS W/ MINERALS 1 EA TAB PO SCH (10:03)
[2018-12-02] MEDS: METOPROLOL SUCCINATE XL 50 MG TAB PO SCH (10:03)
[2018-12-02] MEDS: DIGOXIN 0.125 MG TAB PO SCH (10:03)
[2018-12-02] MEDS: RAMIPRIL 5 MG CAP PO SCH (10:03)
[2018-12-02] MEDS: MELOXICAM 7.5 MG TAB PO SCH ×2 (10:09→20:34)
--- NOTE | 2018-12-02 10:41 | PN ---
SUPERVISING PHYSICIAN: Deshaun Scott MD DATE: 12/02/18 SUBJECTIVE: The patient states her pain is controlled and she just got some pain medication. Otherwise, there is no significant change from last night. OBJECTIVE: VITAL SIGNS: Blood pressure 174/78. Heart rate 96. Respiratory rate 18. Temperature 97.6. Oxygen saturation 95%. GENERAL: Ms. Sorensen is an 82-year-old female in no active distress. NEUROLOGIC: The patient is chronically confused, but there is no acute deficit. LUNGS: Clear. CARDIOVASCULAR: Regular rate and rhythm. Normal S1, S2. ABDOMEN: Soft. Positive bowel sounds. EXTREMITIES: Lower extremities with pulses 2+. Capillary refill is less than 2 seconds. LABORATORY: Normal white count this morning of 8.7, hemoglobin 11.5, hematocrit 34.1, platelet count 188. She still has a sodium of 127, potassium 4.0, chloride 95, CO2 25, BUN 14, creatinine 0.44, glucose 234, calcium 8.4. I checked her digoxin level and it is 0.7. Phenytoin level is less than 25. ASSESSMENT: 1. Fall resulting in nondisplaced pubic rami fractures and left acetabular fracture, which is nondisplaced. 2. Hypertension. 3. History of congestive heart failure without an acute exacerbation. 4. Hyponatremia. 5. Diabetes mellitus, type 2. 6. Chronic dementia. PLAN: We will continue with current treatment. We did call Dr. Hernandez's office this morning to inform him of the consultation as the Emergency Room did not notify him last night. We will discuss with him once he makes rounds. [facility][id number] [facility]
[2018-12-02] MEDS: SODIUM CHLORIDE 0.9% 1000ML 1,000 ML IVS PRN (12:32)
[2018-12-02] MEDS: WARFARIN SODIUM 5 MG TAB PO SCH (12:32)
[2018-12-02] MEDS: PRAVASTATIN SODIUM 20 MG TAB PO SCH (20:34)
[2018-12-03] MEDS: SODIUM CHLORIDE 0.9% 1000ML 1,000 ML IVS PRN ×2 (01:31→15:23)
[2018-12-03] MEDS: PANTOPRAZOLE INJECTION 40 MG in SODIUM CHLORIDE 0.9% 100ML 100 ML IVPB SCH (06:04)
[2018-12-03] MEDS: INSULIN LISPRO 100 UNITS/ML PEN SUBCU SCH ×4 (07:06→20:59)
--- NOTE | 2018-12-03 08:05 | CONS ---
CHIEF COMPLAINT: Left hip pain status post fall. HISTORY OF PRESENT ILLNESS: Ms. Sorensen is an 82-year-old female who presented to the Emergency Room after a fall that she had on the day of presentation of 12/01/18. She had the acute onset of pain at that time. Today, Ms. Sorensen complains of pain isolated to the left side with a very small amount of discomfort in the left arm. She denies any radiation of pain, denies any neurologic symptoms or other injuries associated with this fall. PAST SURGICAL HISTORY: 1. Congestive heart failure. 2. Atrial fibrillation. 3. Diabetes. 4. Dementia. MEDICATIONS: 1. Digoxin. 2. Lasix. 3. Lantus. 4. Mobic. 5. Metoprolol. 6. Dilantin. 7. Potassium. 8. Pravastatin. 9. Ramipril. 10. Warfarin. ALLERGIES: NO KNOWN DRUG ALLERGIES. FAMILY HISTORY: None pertinent to today's complaint. SOCIAL HISTORY: The patient does not drink, smoke or use any illicit drugs. REVIEW OF SYSTEMS: Negative except as indicated in the History of Present Illness. PHYSICAL EXAMINATION: VITAL SIGNS: Blood pressure 140/81. Heart rate 85. Respirations 17. Temperature 98. O2 saturation 95% on room air. MENTAL STATUS: The patient is awake, alert, and is able to give a good history and participate in the physical. The patient is oriented to person, place and time. SKIN: Normal tone and turgor. HEENT: Normocephalic, atraumatic. Pupils equal, round and reactive. Mucosal membranes are moist. NECK: Normal range of motion. No thyromegaly, no lymphadenopathy. CHEST: Normal respiratory excursion. CARDIAC: Regular rate and rhythm. No murmurs, rubs or gallops. MUSCULOSKELETAL: The bilateral upper extremities show full painless range of motion. She has intact sensation. They are warm and well perfused. There are no deformities. There is no obvious bruising. Sensation is intact. Strength is 5/5. The right lower extremity shows no deformity and no pain. She has intact sensation in the extremity and it is warm and well perfused. The left lower extremity shows no deformity. Sensation is intact. It is warm and well perfused. She is able to fully plantar flex and dorsiflex with 5/5 strength. She does have some pain with resisted hip flexion and extension. IMAGING: CT scan was performed and shows nondisplaced fractures of the superior and inferior pubic ramus. There is a subtle defect on the posterior left sacral ala. ASSESSMENT: 1. Pelvic rim fracture. PLAN: The fracture anatomy appears to be stable. The best course for her would likely be nonoperative treatment with partial weightbearing. We will get her up on a walker with partial weightbearing and we will take x-rays after her ambulation. She will continue to progress as her healing allows. #[id number] [facility]
[2018-12-03] MEDS: MORPHINE SULFATE INJ 10 MG/ML VIAL IV PRN ×3 (09:05→22:06)
--- NOTE | 2018-12-03 09:21 | PN ---
DATE: 12/03/18 SUBJECTIVE: This morning, the patient states she feels a little bit of soreness in her pelvic region and also some slow onset left upper arm pain. She endorses not knowing if this was from the previous fall or not, but just noticed it this morning. Otherwise, she seems to be slightly slow to respond, most likely at baseline given her age. Upon chart review and discussion with the primary care physician, I have been notified that her son has had difficulty providing her with adequate care, as he works more often that he is at home. Her PCP and nurse are concerned about her safety at home. Dr. Hernandez in the room upon my examination, see his plans below. REVIEW OF SYSTEMS: GENERAL: She states she feels well overall, denies any concerning new issues today. CHEST: No shortness of breath, no chest wall tenderness or pain. CARDIOVASCULAR: Denies chest pain, denies palpitations, denies any swelling. ABDOMEN: Denies any abdominal pain, no bowel movement since admission. NEUROLOGIC: Denies confusion, denies headache. MUSCULOSKELETAL: Pelvic and hip soreness, left upper arm soreness. OBJECTIVE: VITAL SIGNS: Temperature 98.1. Pulse 91. Blood pressure 158/81. O2 saturation 95% on room air. GENERAL: No acute distress, lying comfortably in bed. CHEST: Lungs clear to auscultation, no wheezes or crackles. CARDIOVASCULAR: Normal rhythm, slight tachycardia, no murmurs. MUSCULOSKELETAL: Moving all extremities normally, very minimal soreness to left upper arm with deep and firm palpation, some soreness with active abduction of the left shoulder, pulses normal. NEUROLOGIC: Alert and oriented to person, place and time, slow to respond and easily carries conversation. LABORATORY: WBCs 10.1, hemoglobin 11.3, platelet count 184. PT 19.6, INR 1.07. Sodium 127, stable. Potassium 3.9, chloride 97, CO2 22, BUN 11, creatinine less than 0.4. Serum osmolality low at 254.2. IMAGING: CT scan was performed and shows nondisplaced fractures of the superior and inferior pubic ramus. There is a subtle defect on the posterior left sacral ala. ASSESSMENT: 1. Fall resulting in nondisplaced pubic rami fractures and left acetabular fracture, which is nondisplaced. 2. Chronic hypertension. 3. History of congestive heart failure without an acute exacerbation. 4. Chronic hyponatremia. 5. Diabetes mellitus, type 2. 6. Chronic dementia. 7. Chronic atrial fibrillation on warfarin. PLAN: After discussion with Dr. Hernandez along with the patient, her images seem to show that her fractures are stable. Per Dr. Hernandez, she will undergo physical therapy today to assess her strength and stability with partial weightbearing. After physical therapy, we can obtain some x-rays to confirm no displacement of the fractures. We are continuing her home medications as of now: digoxin for cardiac abnormalities, continuing her Levemir 17 units daily along with sliding scale insulin, phenytoin, as well as statin and blood pressure medication. She is also on anticoagulation with warfarin 5 mg daily. After discussing the case with her primary care physician, Dr. Scott, it has come to our attention that she is very unlikely to be safe at her home by herself. Her son does take care of her, but he is not at home very often due to his work schedule. Per the PCP and the nurse, she would likely be safer in a custodial at this point in time. #[id number] [facility]
[2018-12-03] MEDS: INSULIN DETEMIR 100 UNITS/ML PEN SUBCU SCH (09:44)
[2018-12-03] MEDS: MELOXICAM 7.5 MG TAB PO SCH ×2 (09:49→20:45)
[2018-12-03] MEDS: MULTIPLE VITAMINS W/ MINERALS 1 EA TAB PO SCH (09:49)
[2018-12-03] MEDS: RAMIPRIL 5 MG CAP PO SCH (09:51)
[2018-12-03] MEDS: DIGOXIN 0.125 MG TAB PO SCH (09:51)
[2018-12-03] MEDS: METOPROLOL SUCCINATE XL 50 MG TAB PO SCH (09:51)
[2018-12-03] MEDS: PHENYTOIN SODIUM CAP EXTENDED 100 MG CAP PO SCH ×3 (09:51→20:45)
--- NOTE | 2018-12-03 10:44 | RAD ---
EXAM DESCRIPTION: Pelvis,2 or More Views: CR/DR/XR. CLINICAL HISTORY: 82 years Female, fracture COMPARISON: CT scan pelvis 12/01/2018 and portable AP pelvis 12/01/2018. TECHNIQUE: AP 1 view FINDINGS: AP view shows slight cortical offset in the lateral left. Pubic ramus in the mid-lateral left inferior pubic ramus consistent with fracture. Similar alignment on the prior study. Pubic symphysis is intact. No other fractures are seen. IMPRESSION: Stable fractures of the left superior and inferior pubic ramus. Electronically signed by: Isma Hobson MD 12/03/2018 10:41 AM [facility]
[2018-12-03] MEDS: WARFARIN SODIUM 5 MG TAB PO SCH (11:49)
[2018-12-03] MEDS ORDERED: PANTOPRAZOLE SODIUM IV 40 MG VIAL ONE (19:19)
[2018-12-03] MEDS ORDERED: SODIUM CHLORIDE 0.9% 100ML 0 ML IVPB ONE (19:19)
[2018-12-03] MEDS: PRAVASTATIN SODIUM 20 MG TAB PO SCH (20:45)
[2018-12-04] MEDS: SODIUM CHLORIDE 0.9% 1000ML 1,000 ML IVS PRN (04:46)
[2018-12-04] MEDS ORDERED: ACETAMINOPHEN W/COD #3 TAB 1 EA TAB PO PRN (06:25)
[2018-12-04] MEDS ORDERED: PANTOPRAZOLE SODIUM TAB 40 MG PO SCH (06:30)
[2018-12-04] MEDS: INSULIN LISPRO 100 UNITS/ML PEN SUBCU SCH (07:21)
[2018-12-04] MEDS: INSULIN DETEMIR 100 UNITS/ML PEN SUBCU SCH (08:29)
[2018-12-04] MEDS: RAMIPRIL 5 MG CAP PO SCH (08:56)
[2018-12-04] MEDS: MULTIPLE VITAMINS W/ MINERALS 1 EA TAB PO SCH (08:56)
[2018-12-04] MEDS: MELOXICAM 7.5 MG TAB PO SCH (08:56)
[2018-12-04] MEDS: METOPROLOL SUCCINATE XL 50 MG TAB PO SCH (08:56)
[2018-12-04] MEDS: PHENYTOIN SODIUM CAP EXTENDED 100 MG CAP PO SCH (08:56)
[2018-12-04] MEDS: DIGOXIN 0.125 MG TAB PO SCH (09:02)
[2018-12-04 10:49] VITALS: BP 179/95; TEMP 98.6; O2SAT 96
--- NOTE | 2018-12-04 12:44 | DS ---
ADMISSION DIAGNOSIS: 1. Status post fall resulting in nondisplaced pubic rami fractures and left acetabular fracture, nondisplaced. 2. Hypertension. 3. History of congestive heart failure without an acute exacerbation. 4. Hyponatremia secondary to chronic congestive heart failure. 5. Diabetes mellitus, type 2. 6. Chronic dementia. REASON FOR HOSPITALIZATION: This is an 82-year-old female who presented to the Emergency Room status post fall. She apparently tripped over her dog and landed on her left backside. She was unable to get up after that, but made it to the Emergency Room. Her family members are some EMS personnel. She does have a history of congestive heart failure and atrial fibrillation on chronic anticoagulation. In the Emergency Room, her workup included films. CT scan of the pelvis showed nondisplaced fractures of the left inferior and superior pubic rami. The nondisplaced superior left pubic ramus fracture appears to be extended into the mid and lower aspect of the left acetabulum. There is subtle minimally displaced fracture in the inferior left sacral alum, probably extending into the nondisplaced left sacroiliac joint. The pubic symphysis bone is still intact. She also was noted to have a low sodium of 127. Coag was 92, BUN 21, glucose 238, INR 1.79. White blood cell count 13.2, hemoglobin 12.8, platelet count 223. She was referred for admission for pain control and a morning consultation with orthopedic surgeon regarding her fractures. At time of examination, the patient is not complaining of any significant pain, however, with movement, she does have some left pain, mainly in the left inguinal area. Vital signs are acceptable. HOSPITAL COURSE: Ms. Sorensen is an 82 year-old female admitted to the hospital after a ground level fall in which she sustained multiple stable fractures of her pelvis (Please see the imaging below). She did well working with Physical Therapy, and repeat x-rays after physical therapy work further confirm that her fractures are stable and unchanging. She was started on p.o. pain medication, with good results. She was accepted to a group home long term with rehab capabilities. Dr. Henrandez, the orthopedic surgeon change management consultant, confirmed with his exam and with his x-ray interpretations that fractures were stable and she would do well with partial weightbearing exercises, and advancing to normal activity. VITAL SIGNS: Temperature 98.7, pulse 98, blood pressure 152/76, respiratory rate 18, oxygen 95% on room air. LABORATORY/IMAGING: White blood cell count initially 13.2, normalized to 10.1. Hemoglobin low but stable at 11.5, platelet count normal throughout admission. PT and INR remained around 19.5/1.97. Sodium level remained at 127, chronic hyponatremia. Potassium normal throughout the hospitalization. Kidney function normal throughout hospitalization. Pelvis CT as well as x-rays showed the following findings: Nondisplaced fractures of the left inferior and superior pubic rami, nondisplaced superior left pubic ramus fracture possibly extending towards the left acetabulum. Minimally displaced fracture in the anterior left sacral alum probably extending towards the left sacroiliac joint that is nondisplaced. Pubic symphysis appears intact. Severe degenerative disease seen in the L5-S1 level. Repeat pelvic x- ray endorsed. There was no further displacement of fractures after physical therapy. DISCHARGE DIAGNOSIS: 1. Fall resulting in nondisplaced pubic rami fractures and left acetabular fractures. 2. Chronic hypertension. 3. History of congestive heart failure without an acute exacerbation. 4. Chronic hyponatremia. 5. Diabetes mellitus, type 2. 6. Chronic dementia. 7. Chronic atrial fibrillation on warfarin. PLAN: The patient did well with physical therapy, and her pain was well controlled throughout her stay. She was accepted to [facility] to have further care and rehab. She will be sent there with Tylenol #3 every 4 hours p.r.n. pain, and physical therapy instructions per Dr. Hernandez. She will be continued on her home Digoxin, Metoprolol, as well as Warfarin. She will continue her diabetic treatment with 17 units of Levemir daily, as well as sliding scale insulin as she has always done. She will followup with her primary care physician and Dr. Hernandez as instructed. #[id number] [facility]
== END 2018-12-04 11:15 | DRG 535 ==
LOC: ER 17:38 → OBSVTOIN 21:32 → MS 21:32
PROVIDERS: ADMIT Nurse Practitioner; ATTEND Family Medicine
DX: S32.592A Other specified fracture of left pubis, initial encounter for closed fracture (principal); S32.492A Other specified fracture of left acetabulum, initial encounter for closed fracture; S32.19XA Other fracture of sacrum, initial encounter for closed fracture; E87.1 Hypo-osmolality and hyponatremia; I50.9 Heart failure, unspecified; I48.2 Chronic atrial fibrillation; E11.9 Type 2 diabetes mellitus without complications; F03.90 Unspecified dementia, unspecified severity, without behavioral disturbance, psychotic disturbance, mood disturbance, and anxiety; I11.0 Hypertensive heart disease with heart failure; W01.0XXA Fall on same level from slipping, tripping and stumbling without subsequent striking against object, initial encounter; Y92.009 Unspecified place in unspecified non-institutional (private) residence as the place of occurrence of the external cause; Z79.01 Long term (current) use of anticoagulants; Z79.4 Long term (current) use of insulin

== ENCOUNTER → 2018-12-24 | Outpatient (CLI) | payer MEDICARE ==
--- NOTE | 2018-12-24 20:17 | RAD ---
EXAM DESCRIPTION: Pelvis: CR/DR/XR CLINICAL HISTORY: PELVIC AND PERINEAL PAIN COMPARISON: AP pelvis 12/03/2018. TECHNIQUE: One view AP pelvis. FINDINGS: Overall bone density is decreased. Hip joint spaces are maintained. Again visualized is displaced fracture of the lateral aspect of the left superior pubic ramus and the junction of the left inferior pubic ramus and the left ischial tuberosity. Mild separation is noted. Hypertrophic changes on the bilateral greater trochanters. Superior iliac bones and lower lumbar sacral spine are difficult to evaluate due to bowel gas, patient body habitus, and decreased bone density. Bilateral atherosclerotic vascular calcifications. IMPRESSION: Stable fractures with minimal displacement of the left superior and inferior pubic rami. Hip joints are maintained. Limited evaluation due to patient decreased bone density. Electronically signed by: Isma Hobson MD 12/24/2018 8:14 PM CDT
== END ==
LOC: RAD 09:04
PROVIDERS: ATTEND Orthopaedic Surgery
DX: S32.512D Fracture of superior rim of left pubis, subsequent encounter for fracture with routine healing (principal); R10.2 Pelvic and perineal pain

== ENCOUNTER → 2018-12-27 | Outpatient (CLI) | payer MEDICARE ==
--- NOTE | 2018-12-27 17:03 | US ---
EXAM DESCRIPTION: Venous,Lower Extremity LT (accession [id number]), Venous,Lower Extremity RT (accession [id number]): Ultrasound. CLINICAL HISTORY: LOCALIZED EDEMA COMPARISON: None Available. TECHNIQUE: Two -dimensional and doppler sonographic evaluation of the deep venous system of the bilateral lower extremities. FINDINGS: Doppler evaluation shows normal color flow and normal phasicity and augmentation of the bilateral common femoral veins, deep femoral veins, femoral veins, popliteal veins, greater and lesser saphenous vein, and peroneal veins, Posterior tibial veins were not well seen bilaterally. These veins showed normal occlusion with transducer pressure. Two-dimensional survey showed no echogenic clot within these veins. Fluid cyst and edema in the right popliteal fossa. Edema in the left popliteal fossa. IMPRESSION: Duplex ultrasound evaluation of the bilateral lower extremity deep venous systems showing no evidence of thrombosis. Bilateral posterior tibial veins were not well seen. Chris's cyst and edema in the right popliteal fossa. Edema in the left popliteal fossa. Electronically signed by: Isma Hobson MD 12/27/2018 5:00 PM CDT
--- NOTE | 2018-12-27 17:03 | US ---
EXAM DESCRIPTION: Venous,Lower Extremity LT (accession [id number]), Venous,Lower Extremity RT (accession [id number]): Ultrasound. CLINICAL HISTORY: LOCALIZED EDEMA COMPARISON: None Available. TECHNIQUE: Two -dimensional and doppler sonographic evaluation of the deep venous system of the bilateral lower extremities. FINDINGS: Doppler evaluation shows normal color flow and normal phasicity and augmentation of the bilateral common femoral veins, deep femoral veins, femoral veins, popliteal veins, greater and lesser saphenous vein, and peroneal veins, Posterior tibial veins were not well seen bilaterally. These veins showed normal occlusion with transducer pressure. Two-dimensional survey showed no echogenic clot within these veins. Fluid cyst and edema in the right popliteal fossa. Edema in the left popliteal fossa. IMPRESSION: Duplex ultrasound evaluation of the bilateral lower extremity deep venous systems showing no evidence of thrombosis. Bilateral posterior tibial veins were not well seen. Chris's cyst and edema in the right popliteal fossa. Edema in the left popliteal fossa. Electronically signed by: Isma Hobson MD 12/27/2018 5:00 PM CDT
== END ==
LOC: US 14:45
PROVIDERS: ATTEND Family Medicine
DX: R60.0 Localized edema (principal)

== ENCOUNTER → 2019-01-07 | Outpatient (CLI) | payer MEDICARE ==
--- NOTE | 2019-01-09 17:45 | US ---
EXAM DESCRIPTION: Venous,Lower Extremity LT (accession [id number]), Venous,Lower Extremity RT (accession [id number]): Ultrasound. CLINICAL HISTORY: EDEMA. Bilateral lower extremities. COMPARISON: Bilateral lower extremity deep venous system duplex ultrasound evaluation December 27, 2018. TECHNIQUE: Two -dimensional and doppler sonographic evaluation of the deep venous system of the bilateral lower extremities. FINDINGS: Doppler evaluation shows normal color flow and normal phasicity and augmentation of the bilateral common femoral veins, deep femoral veins, femoral veins, popliteal veins, greater and lesser saphenous vein, and peroneal veins, and Posterior tibial veins. These veins showed normal occlusion with transducer pressure. Two-dimensional survey showed no echogenic clot within these veins. 8.1 x 3.4 x 2.6 cm ill-defined fluid mass, nonvascular, in the right popliteal fossa. Edema in the left popliteal fossa. IMPRESSION: Duplex ultrasound evaluation of the bilateral lower extremity deep venous systems showing no evidence of thrombosis. 8 cm Chris's cyst in the right popliteal fossa. Edema in the left popliteal fossa. Electronically signed by: Isma Hobson MD 01/09/2019 5:42 PM CDT
--- NOTE | 2019-01-09 17:45 | US ---
EXAM DESCRIPTION: Venous,Lower Extremity LT (accession [id number]), Venous,Lower Extremity RT (accession [id number]): Ultrasound. CLINICAL HISTORY: EDEMA. Bilateral lower extremities. COMPARISON: Bilateral lower extremity deep venous system duplex ultrasound evaluation December 27, 2018. TECHNIQUE: Two -dimensional and doppler sonographic evaluation of the deep venous system of the bilateral lower extremities. FINDINGS: Doppler evaluation shows normal color flow and normal phasicity and augmentation of the bilateral common femoral veins, deep femoral veins, femoral veins, popliteal veins, greater and lesser saphenous vein, and peroneal veins, and Posterior tibial veins. These veins showed normal occlusion with transducer pressure. Two-dimensional survey showed no echogenic clot within these veins. 8.1 x 3.4 x 2.6 cm ill-defined fluid mass, nonvascular, in the right popliteal fossa. Edema in the left popliteal fossa. IMPRESSION: Duplex ultrasound evaluation of the bilateral lower extremity deep venous systems showing no evidence of thrombosis. 8 cm Chris's cyst in the right popliteal fossa. Edema in the left popliteal fossa. Electronically signed by: Isma Hobson MD 01/09/2019 5:42 PM CDT
--- NOTE | 2019-01-09 17:52 | US ---
EXAM DESCRIPTION: Extremity,Lower Vasquez Arteries: Ultrasound. CLINICAL HISTORY: EDEMA COMPARISON: None. TECHNIQUE: Doppler evaluation of the bilateral lower extremity arterial flow waveforms and velocities. FINDINGS: Arterial waveforms in the right lower extremity are triphasic or biphasic from the right common femoral through the right popliteal artery. Monophasic in the right peroneal artery and dorsalis pedis artery. No flow in the right posterior tibial artery. Arterial waveforms in the left lower extremity are triphasic in the left BLOCK CLE[employer]ER. Monophasic in the proximal and mid SFA blunted monophasic in the distal left SFA. Blunted monophasic in the left popliteal artery but with better velocity within the distal SFA. Blunted monophasic in the left peroneal artery and left DPA with better velocity in the DPA. No flow in the left posterior tibial artery. Comments: Atherosclerotic plaque is noted. 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 Decreased flow in the bilateral peroneal arteries. Anterior tibial arteries were not evaluated flow visualized in the bilateral DPAs. There also appears to be significant atherosclerotic occlusive disease in the mid to distal left superficial femoral artery. Electronically signed by: Isma Hobson MD 01/09/2019 5:49 PM CDT
== END ==
LOC: US 14:05
PROVIDERS: ATTEND Family Medicine
DX: I70.203 Unspecified atherosclerosis of native arteries of extremities, bilateral legs (principal); M71.21 Synovial cyst of popliteal space [Baker], right knee; R60.0 Localized edema

== ENCOUNTER 2019-01-09 17:58 | Emergency (ER) | payer MEDICARE ==
[2019-01-09 18:11] VITALS: TEMP 99.5
[2019-01-09] MEDS ORDERED: MORPHINE SULFATE INJ 10 MG/ML VIAL IV ONE (18:36)
[2019-01-09] MEDS ORDERED: PROCHLORPERAZINE INJ 10 MG/2 ML VIAL IV ONE (18:36)
--- NOTE | 2019-01-09 18:38 | ED.PDOC ---
History of Present Illness - General Chief Complaint: Lower Extremity Injury Stated Complaint: R upper thigh/lower hip swelling and pain Time Seen by Provider: 01/09/19 18:33 Source: patient Exam Limitations: no limitations - History of Present Illness Initial Comments: Camila Sorensen 83 y/o female brought to ER with sudden onset of right thigh pain as she was getting out of the car coming [place] [employer].Denies history of fall or any trauma to extremities.Had history of left hip replacement.Patient is also on anti coagulation with Warfarin.Also no back pain.Had history of pelvic fracture and underwent Rehab Occurred: just prior to arrival Pain - Lower Extremity: moderate: Right Thigh/Hip Method of Injury: unknown Improving Factors: rest Worsening Factors: movement Associated Symptoms: pain Allergies/Adverse Reactions: Allergies NO KNOWN ALLERGY Allergy (Verified 12/01/18 20:37) Home Medications: Ambulatory Orders Digoxin [Digox] 0.125 mg PO DAILY 12/01/18 Furosemide Tab [Lasix Tab] 40 mg PO DAILY 12/01/18 Insulin Glargine 100U/ml [Lantus] 17 unit SUBCU DAILY 12/01/18 Meloxicam [Mobic] 7.5 mg PO BID 12/01/18 Metoprolol Succinate [Metoprolol Succinate ER] 50 mg PO DAILY 12/01/18 Multiple Vitamins W/ Minerals [Multivitamin Women] 1 tab PO DAILY 12/01/18 Phenytoin Sodium Extended 100 mg PO TID 12/01/18 Potassium Chloride [Potassium Chloride ER] 10 meq PO DAILY 12/01/18 Pravastatin Sodium 40 mg PO DAILY 12/01/18 Ramipril 5 mg PO DAILY 12/01/18 Warfarin Sodium 5 mg PO DAILY 12/01/18 Acetamin W/Cod #3 Tab [Tylenol w/CODEINE #3] 1 ea PO Q4H PRN 14 Days #90 tab 12/04/18 Review of Systems - Review of Systems Constitutional: States: no symptoms reported EENTM: States: no symptoms reported Respiratory: States: no symptoms reported Cardiology: States: no symptoms reported Musculoskeletal: States: see HPI All other Systems: Reviewed and Negative, No Change from Baseline Past Medical History (General) - Patient Medical History Hx Seizures: No Hx Stroke: No Hx Dementia: No Hx Asthma: No Hx of COPD: No Hx Cardiac Disorders: Yes - A fib Hx Congestive Heart Failure: No Hx Pacemaker: No Hx Hypertension: Yes Hx Thyroid Disease: No Hx Diabetes: Yes Hx Gastroesophageal Reflux: No Hx Renal Disease: No Hx Cancer: Yes - Skin Hx of HIV: No Hx Hepatitis C: No Hx MRSA: No Surgical History: other - hysterectomy,left hip - Vaccination History Hx Tetanus, Diphtheria Vaccination: No Hx Influenza Vaccination: Yes - 2018 Hx Pneumococcal Vaccination: No - Social History Hx Tobacco Use: No Hx Chewing Tobacco Use: No Hx Alcohol Use: No Hx Substance Use: No Hx Substance Use Treatment: No Hx Depression: No Hx Physical Abuse: No Hx Emotional Abuse: No Hx Suspected Abuse: No - Activities of Daily Living Patient Lives Alone: No - Female History Patient : No Family Medical History - Family History Mother Family History: Unknown Living Status: Hx Cardiac Disease: Yes - mom Hx Family Cancer: Yes Father Living Status: Hx Family Stroke: Yes Physical Exam - Physical Exam General Appearance: Alert, Comfortable, No apparent distress Eyes, Ears, Nose, Throat: normal ENT inspection Neck: supple, normal inspection Cardiovascular/Respiratory: regular rate, rhythm, no M/R/G, normal peripheral pulses Gastrointestinal/Abdominal: non-tender Back: normal inspection, no CVA tenderness, no vertebral tenderness Thigh/Hip: no evidence of injury, soft tissue tenderness - right thigh, swelling - right thigh proximal third no erythema Leg: normal inspection, non-tender, no evidence of injury Knee: normal inspection, non-tender, no evidence of injury Ankle: normal inspection, non-tender Foot: normal inspection, non-tender Neuro/Tendon: normal sensation, normal motor functions, normal tendon functions Mental Status: alert, oriented x 3 Skin: normal color, warm/dry Progress - Progress Progress: 01/09/19 19:52 Vital Signs - 8 hr 01/09/19 18:00 Temperature 99.5 F Pulse Rate [ 93 H Left Radial] Respiratory 20 Rate Blood Pressure 183/121 [Left Arm] O2 Sat by Pulse 99 Oximetry - Results/Orders Results/Orders: 01/09/19 18:36 IV Care:Saline Lock per Protoc QSHIFT Laboratory Results - last 24 hr 01/09/19 18:36 WBC 8.3 RBC 3.36 L Hgb 10.6 L Hct 31.3 L MCV 93.3 MCH 31.6 H MCHC 33.9 RDW 14.2 Plt Count 191 MPV 9.5 Absolute Neuts (auto) 4.70 Absolute Lymphs (auto) 2.30 Absolute Monos (auto) 1.00 H Absolute Eos (auto) 0.20 Absolute Basos (auto) 0.10 Neutrophils % 56.8 Lymphocytes % 28.2 Monocytes % 12.0 H Eosinophils % 1.8 Basophils % 1.2 PT 23.4 H INR 2.36 H PTT (SP) 28.3 Sodium 127 L Potassium 4.4 Chloride 93 L Carbon Dioxide 24 Anion Gap 14.4 BUN 12 Creatinine 0.50 L BUN/Creatinine Ratio 24.0 H Random Glucose 236 H Serum Osmolality 262.6 L Calcium 8.4 Magnesium 1.7 L Total Bilirubin 0.6 Direct Bilirubin 0.2 Indirect Bilirubin 0.4 AST 24 ALT 19 Alkaline Phosphatase 125 H Creatine Kinase 76 CK-MB (CK-2) 1.9 CK-MB (CK-2) % Not Reportable Troponin I < 0.02 Serum Total Protein 6.1 L Albumin 3.2 Discuss test reslt with patient and findings on right thigh CT -no fracture but has hematoma. - EKG/XRAY/CT CT Ordered: Yes - right upper extremity-hematoma Departure - Departure Clinical Impression: Spontaneous hematoma of thigh, Current use of fci anticoagulation, History of atrial fibrillation Time of Disposition: 19:57 Disposition: Discharge to Home or Self Care Condition: Fair Departure Forms: ED Discharge - Pt. Copy, Patient Portal Self Enrollment Referrals: ANGELINE PARKER MD [Primary Care Provider] - 1-2 Weeks Home Medications: Ambulatory Orders Digoxin [Digox] 0.125 mg PO DAILY 12/01/18 Furosemide Tab [Lasix Tab] 40 mg PO DAILY 12/01/18 Insulin Glargine 100U/ml [Lantus] 17 unit SUBCU DAILY 12/01/18 Meloxicam [Mobic] 7.5 mg PO BID 12/01/18 Metoprolol Succinate [Metoprolol Succinate ER] 50 mg PO DAILY 12/01/18 Multiple Vitamins W/ Minerals [Multivitamin Women] 1 tab PO DAILY 12/01/18 Phenytoin Sodium Extended 100 mg PO TID 12/01/18 Potassium Chloride [Potassium Chloride ER] 10 meq PO DAILY 12/01/18 Pravastatin Sodium 40 mg PO DAILY 12/01/18 Ramipril 5 mg PO DAILY 12/01/18 Warfarin Sodium 5 mg PO DAILY 12/01/18 Acetamin W/Cod #3 Tab [Tylenol w/CODEINE #3] 1 ea PO Q4H PRN 14 Days #90 tab 12/04/18 Additional Instructions: Discontinue following medications:MOBIC and MULTIVITAMINS May Take B-COMPLEX VITAMINS ONLY;Follow up with primary Md 10 January 2019 for Recheck;Return to [facility] room as needed;Continue with rest of home medications
--- NOTE | 2019-01-09 19:29 | CT ---
EXAM: Lower Extremity CLINICAL INDICATION: Right lower extremity pain COMPARISON: There is no previous study for comparison. TECHNIQUE: The CT scan was done using contiguous axial 2.5 mm sections through the right hip and proximal thigh with multiplanar reconstructions. This exam was performed according to our departmental dose-optimization program, which includes automated exposure control, adjustment of the mA and/or kV according to patient size and/or use of iterative reconstruction technique. FINDINGS: There is no fracture or dislocation. There is no focal bone lesion. A lobulated mass is noted lateral to the right greater trochanter with its has density characteristics suggesting a hematoma and which measures 5.1 x 4.9 x 6.9 cm. A soft tissue tumor could have the same appearance. No other masses or fluid collections are seen. Nonspecific subcutaneous edema is noted lateral to the right hip. Incidentally noted is marked distention of the urinary bladder. IMPRESSION: 1. No fracture or dislocation. 2. Lobulated mass lateral to the right greater trochanter most likely representing a hematoma. Other etiologies such as neoplasm are not excluded and follow-up MRI with and without contrast is recommended for further evaluation. 3. Incidentally noted markedly distended urinary bladder. Electronically signed by: Roe Ribera MD 01/09/2019 7:26 PM CDT
[2019-01-09] MEDS ORDERED: HYDROCOD/APAP 7.5/325 (ER DISP) #3 TAB PO ONE (19:59)
[2019-01-09 20:17] VITALS: BP 136/69; O2SAT 96
== END 2019-01-09 20:48 | disposition home or self-care (01) ==
LOC: ER 17:58
DX: S70.11XA Contusion of right thigh, initial encounter (principal); I48.91 Unspecified atrial fibrillation; I10 Essential (primary) hypertension; E11.9 Type 2 diabetes mellitus without complications; Z79.01 Long term (current) use of anticoagulants; Z85.828 Personal history of other malignant neoplasm of skin; Z79.899 Other long term (current) drug therapy; Z79.4 Long term (current) use of insulin; V48.4XXA Person boarding or alighting a car injured in noncollision transport accident, initial encounter; Y92.810 Car as the place of occurrence of the external cause
CPT/HCPCS: 36415; 73700; 80048; 80076; 82550; 82553; 84484; 85025; 85610; 85730; J0780; J2270

== ENCOUNTER 2019-01-16 17:38 | Inpatient (IN) | payer MEDICARE ==
[2019-01-16] MEDS ORDERED: SOD CHL 3% *HYPERTONIC* 500ML 160 ML IVS ONE (18:32)
--- NOTE | 2019-01-16 18:34 | RAD ---
EXAM DESCRIPTION: Abdomen Series CLINICAL HISTORY: 83 years Female, abd distention, tachycardia, delirium COMPARISON: August 13, 2013 chest radiography TECHNIQUE: Supine and upright views. 3 radiographs FINDINGS: Nonspecific bowel gas pattern. No evidence of intestinal obstruction. Vascular calcifications are noted. No free air is seen. Chest radiograph demonstrates interval development of diffuse interstitial pulmonary infiltrates and small effusions. Healed fracture/deformity right humeral neck. IMPRESSION: 1. Nonspecific bowel gas pattern 2. Diffuse interstitial infiltrates have developed, as have small effusions Electronically signed by: Aldair Carrillo 01/16/2019 6:31 PM CDT
[2019-01-16] MEDS ORDERED: IBUPROFEN 200 MG TAB PO ONE (18:40)
[2019-01-16] MEDS ORDERED: PIPERACILLIN/TAZOBACTAM 3.375 GM in SODIUM CHLORIDE 0.9% 100ML 100 ML IVPB ONE (18:44)
[2019-01-16] MEDS ORDERED: METOPROLOL TARTRATE 25 MG TAB PO ONE (18:44)
--- NOTE | 2019-01-16 18:45 | RAD ---
EXAM DESCRIPTION: Knee,Left 2 or More Views CLINICAL HISTORY: 83 years Female, knee pain, swelling COMPARISON: None. FINDINGS: Knee arthroplasty in place. No periprosthetic fracture or loosening. Possible small joint effusion. Diffuse soft tissue swelling. No fracture or dislocation. Vascular calcifications. IMPRESSION: Needs opacity in place. No acute osseous abnormality. Small joint effusion. Diffuse soft tissue swelling. Electronically signed by: Filipe Best MD 01/16/2019 6:41 PM CDT
[2019-01-16] MEDS ORDERED: MAGNESIUM SULFATE PREMIX 2GM 2 GM in PREMIX BAG 1 BAG IVPB ONE (18:46)
[2019-01-16] MEDS ORDERED: MAGNESIUM SULFATE PREMIX 2GM 50 ML IVPB ONE (18:48)
[2019-01-16] MEDS ORDERED: SODIUM CHLORIDE 0.9% 100ML 100 ML IVPB ONE (19:38)
[2019-01-16] MEDS ORDERED: PIPERACILLIN/TAZOBACTAM 3.375 GM VIAL IVPB ONE (19:38)
--- NOTE | 2019-01-16 20:19 | CT ---
EXAM DESCRIPTION: Abdoment/Pelvis w/o Contrast CLINICAL HISTORY: sepsis uncertain source COMPARISON: CT pelvis December 01, 2018 TECHNIQUE: Contiguous axial images of the abdomen and pelvis were obtained followed by reconstruction images. This exam was performed according to our departmental dose-optimization program, which includes automated exposure control, adjustment of the mA and/or kV according to patient size and/or use of iterative reconstruction technique. FINDINGS: There are bilateral pleural fluid collections. Increased opacity in the dependent portion of the lungs may represent atelectasis. There is atherosclerosis. There is cardiomegaly. There is bilateral hydronephrosis with dilatation of the ureter up to the level of the ureterovesical junction. The bladder is distended. Calcifications within the pelvis compatible with phleboliths. Patient is status post hysterectomy. There is a small amount of fluid at the presacral space and mild stranding of the subcutaneous fat which could be secondary to anasarca. There are diverticuli without CT evidence of acute diverticulitis. There are subacute fractures of the inferior and superior left pubic rami, callus formation is noted at this time. Sclerosis of the left sacral ala compatible with a subacute fracture. There is compression deformity of the L1 vertebral body without retropulsion this could represent an old fracture. The liver, spleen, pancreas and kidneys are otherwise within normal limits. The gallbladder is unremarkable by CT criteria. Aorta is of normal caliber and tapering. There is no free fluid in the abdomen. There is no bowel obstruction. IMPRESSION: Distended bladder and dilatation of both ureters without discrete stone. Please correlate. Bilateral pleural fluid collections and mild anasarca. Subacute pelvic fractures again visualized. Electronically signed by: Roberto Hubbard MD 01/16/2019 8:16 PM CDT
[2019-01-16] MEDS ORDERED: FUROSEMIDE INJ 40 MG/4 ML VIAL IV ONE (20:55)
[2019-01-16] MEDS ORDERED: CIPROFLOXACIN 500 MG TAB PO ONE (20:55)
--- NOTE | 2019-01-16 21:12 | ED.PDOC ---
History of Present Illness - General Chief Complaint: Neuro Symptoms/Deficits Stated Complaint: confusion,elevated HR Time Seen by Provider: 01/16/19 17:42 Source: patient, family, EMS, [place] [facility] records Exam Limitations: clinical condition - History of Present Illness Initial Comments: the patient is an 83-year-old female brought into the emergency room secondary todelirium for the last day and a half. Additionally she has had an increasing heart rate for the last day and a half. She does have a history of atrial fibrillation with rapid ventricular rate in the past. She is anticoagulated. She did recently have a hematoma over the right greater trochanter. The patient is reporting some mild left knee pain today. She does appear more altered than I've seen her in the past. She does have a low-grade fever. She does have diffuse abdominal discomfort. She is unable to urinate. She is unsure how long that has been going on. She has had a mild cough. Timing/Duration: unsure Severity: moderate Improving Factors: nothing Worsening Factors: nothing Associated Symptoms: cough, fever/chills, loss of appetite, malaise, shortness of breath, weakness Allergies/Adverse Reactions: Allergies NO KNOWN ALLERGY Allergy (Verified 01/16/19 17:56) Home Medications: Ambulatory Orders Digoxin [Digox] 0.125 mg PO DAILY 12/01/18 Furosemide Tab [Lasix Tab] 40 mg PO DAILY 12/01/18 Insulin Glargine 100U/ml [Lantus] 17 unit SUBCU DAILY 12/01/18 Meloxicam [Mobic] 7.5 mg PO BID 12/01/18 Metoprolol Succinate [Metoprolol Succinate ER] 50 mg PO DAILY 12/01/18 Multiple Vitamins W/ Minerals [Multivitamin Women] 1 tab PO DAILY 12/01/18 Phenytoin Sodium Extended 100 mg PO TID 12/01/18 Potassium Chloride [Potassium Chloride ER] 10 meq PO DAILY 12/01/18 Pravastatin Sodium 40 mg PO DAILY 12/01/18 Ramipril 5 mg PO DAILY 12/01/18 Warfarin Sodium 5 mg PO DAILY 12/01/18 Acetamin W/Cod #3 Tab [Tylenol w/CODEINE #3] 1 ea PO Q4H PRN 14 Days #90 tab 12/04/18 Review of Systems - Review of Systems Constitutional: States: fever, malaise, weakness EENTM: States: no symptoms reported Respiratory: States: cough Cardiology: States: no symptoms reported Gastrointestinal/Abdominal: States: abdominal pain Genitourinary: States: see HPI Musculoskeletal: States: other - difficulty with urination Skin: States: no symptoms reported Neurological: States: other - delirium Endocrine: States: no symptoms reported All other Systems: No Change from Baseline Past Medical History (General) - Patient Medical History Hx Seizures: No Hx Stroke: No Hx Dementia: Yes Hx Asthma: No Hx of COPD: No Hx Cardiac Disorders: Yes - A fib Hx Congestive Heart Failure: Yes Hx Pacemaker: No Hx Hypertension: Yes Hx Thyroid Disease: No Hx Diabetes: Yes Hx Gastroesophageal Reflux: Yes Hx Renal Disease: No Hx Cancer: Yes - Skin Hx of HIV: No Hx Hepatitis C: No Hx MRSA: No - Vaccination History Hx Tetanus, Diphtheria Vaccination: No Hx Influenza Vaccination: Yes - 2018 Hx Pneumococcal Vaccination: No - Social History Hx Tobacco Use: No Hx Chewing Tobacco Use: No Hx Alcohol Use: No Hx Substance Use: No Hx Substance Use Treatment: No Hx Depression: No Hx Physical Abuse: No Hx Emotional Abuse: No Hx Suspected Abuse: No - Activities of Daily Living Alf/Assisted Living (if applicable):: Yadiel Lezama - Female History Patient : No Family Medical History - Family History Mother Family History: Unknown Living Status: Hx Cardiac Disease: Yes - mom Hx Family Cancer: Yes Father Living Status: Hx Family Stroke: Yes Physical Exam - Physical Exam General Appearance: Alert - but fairly confused. She does know what hospital she is at. She does not really know why she is here. She is pleasant and coop erative however., Frail Eye Exam: bilateral normal Ears, Nose, Throat: hearing grossly normal, normal ENT inspection Neck: full range of motion, supple Respiratory: no respiratory distress, no accessory muscle use, rales - bibasilar Cardiovascular/Chest: normal peripheral pulses, tachycardia, irregularly irregular, other - +1 edema bilaterally Peripheral Pulses: radial,right: 2+, radial,left: 2+ Gastrointestinal/Abdominal: soft, other - obese with diffuse discomfort palpation worse in the lower abdomen. 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 Delirious. Skin Exam: normal color Comments: Vital Signs - 24 hr 01/16/19 01/16/19 17:50 17:58 Temperature 100.3 F H Pulse Rate [ 124 H 126 H Left Brachial] Respiratory 20 Rate Blood Pressure 120/82 [Left Arm] O2 Sat by Pulse 99 Oximetry Progress - Progress Progress: 01/16/19 21:15 the patient is an 83-year-old female presenting to emergency room primarily due to delirium and tachycardia. The patient has long-standing atrial fibrillation but now with rapid ventricular rate. She has responded well to an extra dose of metoprolol bring her heart rate down into the 80s at rest. She does have a slightly elevated troponin which is likely mild stress ischemia from the tachycardia versus accumulation due to poor renal output. CK-MB is within normal limits. She is not having any chest pain. EKG is otherwise reassuring. The patient does have significant hyponatremia and hypo-osmolality. This does go along with urinary retention. She is receiving concentrated saline currently for a total of 160 cc at 3%. This will of course need to be rechecked. The patient does have bilateral pleural effusions due to fluid overload likely from urinary retention. She also has CHF likely due to fluid overload from urinary retention. The patient will need a additional diuresis over the next few days to help with these issues. Her primary issue is most likely urosepsis with bilateral pyelonephritis. She has received cultures and is receiving a dose of Zosyn, ciprofloxacin and prednisone. She does have diabetes and blood sugars will need to be followed. She also has hypomagnesemia and has received a couple of grams of magnesium sulfate. The patient is being admitted for above issues. the patient will likely need to have voiding studies performed once she has stabilized to make sure that she will be able to urinate adequately after the catheter is removed. The source of her urinary retention is uncertain at this time but may have to do with the recent pelvic fractures. Critical care time spent on this patient for above issues is 55 minutes, excluding otherwise billable procedures. - Results/Orders Results/Orders: chest x-ray shows diffuse interstitial infiltrates and bilateral pleural effusions. CT of abdomen and pelvis shows significantly enlarged bladder with dilated ureters and renal pelvises bilaterally. Initial EKG shows A. fib with RVR at a rate of 125 bpm. Very mild left axis deviation. Borderline R-wave progression. No definitive ST segment changes concerning for ischemia. Laboratory Tests 01/16/19 01/16/19 01/16/19 18:02 18:02 18:02 WBC 26.9 H* RBC 3.32 L Hgb 10.5 L Hct 31.0 L MCV 93.2 MCH 31.7 H MCHC 34.0 RDW 14.6 H Plt Count 235 MPV 9.8 Absolute Neuts (auto) 22.70 H Absolute Lymphs (auto) 1.10 Absolute Monos (auto) 2.90 H Absolute Eos (auto) 0.00 Absolute Basos (auto) 0.10 Neutrophils % 84.6 H Neutrophils % (Manual) 55.0 Lymphocytes % 4.3 L Lymphocytes % (Manual) 6.0 Monocytes % 10.9 H Monocytes % (Manual) 7.0 Eosinophils % 0.0 L Basophils % 0.2 Band Neutrophils 30.0 H* Metamyelocytes 2.0 H Platelet Estimate Normal Poikilocytosis 1+ Anisocytosis 2+ PT 21.6 H INR 2.18 H PTT (SP) 35.2 H Sodium 125 L Potassium 4.4 Chloride 88 L Carbon Dioxide 24 Anion Gap 17.4 BUN 23 H Creatinine 1.24 BUN/Creatinine Ratio 18.5 Random Glucose 264 H Serum Osmolality 264.4 L Lactic Acid Calcium 9.0 Magnesium 1.4 L Total Bilirubin 2.0 H AST 22 ALT 18 Alkaline Phosphatase 97 Creatine Kinase 50 CK-MB (CK-2) 1.6 CK-MB (CK-2) % Not Reportable Troponin I 0.82 H* B-Natriuretic Peptide 1010.0 H* Serum Total Protein 6.6 Albumin 3.0 L Globulin 3.6 H Albumin/Globulin Ratio 0.8 L TSH 4.93 Urine Color Urine Appearance Urine pH Ur Specific [place] Urine Protein Urine Glucose (UA) Urine Ketones Urine Blood Urine Nitrite Urine Bilirubin Urine Urobilinogen Ur Leukocyte Esterase Urine RBC Urine WBC Ur Epithelial Cells Urine Bacteria Phenytoin 01/16/19 01/16/19 01/16/19 18:02 18:04 20:30 WBC RBC Hgb Hct MCV MCH MCHC RDW Plt Count MPV Absolute Neuts (auto) Absolute Lymphs (auto) Absolute Monos (auto) Absolute Eos (auto) Absolute Basos (auto) Neutrophils % Neutrophils % (Manual) Lymphocytes % Lymphocytes % (Manual) Monocytes % Monocytes % (Manual) Eosinophils % Basophils % Band Neutrophils Metamyelocytes Platelet Estimate Poikilocytosis Anisocytosis PT INR PTT (SP) Sodium Potassium Chloride Carbon Dioxide Anion Gap BUN Creatinine BUN/Creatinine Ratio Random Glucose Serum Osmolality Lactic Acid 2.2 Calcium Magnesium Total Bilirubin AST ALT Alkaline Phosphatase Creatine Kinase CK-MB (CK-2) CK-MB (CK-2) % Troponin I B-Natriuretic Peptide Serum Total Protein Albumin Globulin Albumin/Globulin Ratio TSH Urine Color Yellow Urine Appearance Cloudy Urine pH 5.0 Ur Specific [place] 1.025 Urine Protein 100 H Urine Glucose (UA) 500 H Urine Ketones Negative Urine Blood Moderate H Urine Nitrite Negative Urine Bilirubin Negative Urine Urobilinogen 0.2 Ur Leukocyte Esterase Small H Urine RBC 3-5 H Urine WBC Tntc H Ur Epithelial Cells 1-3 Urine Bacteria 4+ H Phenytoin 3.1 L Departure - Departure Clinical Impression: Pyelonephritis, Urinary retention, Hyponatremia, Metabolic encephalopathy, Atrial fibrillation with RVR, Hypomagnesemia, Hyperglycemia Sepsis Qualifiers: Sepsis type: sepsis due to unspecified organism Qualified Code(s): A41.9 - Sepsis, unspecified organism Acute exacerbation of CHF (congestive heart failure) Qualifiers: Heart failure type: unspecified Qualified Code(s): I50.9 - Heart failure, unspecified Disposition: Admit Patient Departure Forms: ED Discharge - Pt. Copy, Patient Portal Self Enrollment Referrals: ANGELINE PARKER MD [Primary Care Provider] - 1-2 Weeks Home Medications: Ambulatory Orders Digoxin [Digox] 0.125 mg PO DAILY 12/01/18 Furosemide Tab [Lasix Tab] 40 mg PO DAILY 12/01/18 Insulin Glargine 100U/ml [Lantus] 17 unit SUBCU DAILY 12/01/18 Meloxicam [Mobic] 7.5 mg PO BID 12/01/18 Metoprolol Succinate [Metoprolol Succinate ER] 50 mg PO DAILY 12/01/18 Multiple Vitamins W/ Minerals [Multivitamin Women] 1 tab PO DAILY 12/01/18 Phenytoin Sodium Extended 100 mg PO TID 12/01/18 Potassium Chloride [Potassium Chloride ER] 10 meq PO DAILY 12/01/18 Pravastatin Sodium 40 mg PO DAILY 12/01/18 Ramipril 5 mg PO DAILY 12/01/18 Warfarin Sodium 5 mg PO DAILY 12/01/18 Acetamin W/Cod #3 Tab [Tylenol w/CODEINE #3] 1 ea PO Q4H PRN 14 Days #90 tab 12/04/18 Decision To Admit - Decistion To Admit Decision to Admit Reason: Medical Nature Decision to Admit Date: 01/16/19 Decision to Admit Time: 21:22
[2019-01-16] MEDS: predniSONE 20 MG TAB PO ONE (21:28)
--- NOTE | 2019-01-16 21:37 | HP ---
SUPERVISING PHYSICIAN: Lyle Randhawa MD CHIEF COMPLAINT: Confusion and palpitations. HISTORY OF PRESENT ILLNESS: Ms. Sorensen is an 83-year-old, female patient who currently resides at [facility]. She did sustain a pelvis fracture in the previous month and was admitted to the hospital here on 12/01/18. She was discharged on 12/04/18 to [facility]. She did fairly well and went home this past Thursday. Over the week, she had some episodes of weakness and falls and difficulties at home. She was seen on the office by Dr. Scott on Thursday who recommended she go back into the retirement for continued rehabilitation efforts. At that point, she was readmitted to [facility]. Today, she presented to the Emergency Room via 911 after she started having complaints of shortness of breath and rapid heart rate. She does have a history of atrial fibrillation on digoxin, Coumadin as well as metoprolol for rate control. She is also a type 2 diabetic. In the Emergency Room today, her initial vital signs showed she had a heart rate of 124. Blood pressure was 120/82. Oxygen saturation 99% on room with respirations 20. EKG at that time showed atrial fibrillation with rapid ventricular response. No definitive ST segment changes concerning for ischemia were noted. Laboratory studies showed she had an elevated BNP at 1010 with a troponin of 0.82. Sodium was noted to be low at 125. Glucose 264, magnesium 1.4. CBC showed a significant leukocytosis of 26,900 with 30% bands. She was febrile initially on admission with temperature of 100.3. She was also having some suprapubic abdominal pain and at that point, abdominopelvic CT was completed after abdominal x-ray was without any significant findings and per radiologic interpretation of a noncontrast CT, there was note of distended bladder and dilation of both ureters without discrete stones. At that point, Martin catheter was placed resulting in over 1200 mL of urine output. Urinalysis showed microscopic to have 3 to 5 RBCs, too numerous to count WBCs and 4+ bacteria with moderate amount of blood, negative nitrites, small leukocyte esterase, 500 of glucose with 100 of protein. Coagulation studies showed she had INR 2.18. Digoxin level was therapeutic at 1.2 and Dilantin 3.1. Influenza A and B by PCR was negative. She was also having some left knee pain and this was followed up with an x-ray of her knee which showed orthopedic hardware in place, no acute osseous abnormalities, just a small join effusion with some soft tissue swelling. Given her degree of leukocytosis, confusion on admission, tachycardia with atrial fibrillation with rapid ventricular response and concerns for developing pyelonephritis given CT findings and urinalysis, the patient was started on treatment with antibiotics with Zosyn and given a dose of metoprolol which did result in correction of her heart rate to 50 to 70s. Blood pressure was stable at 102/62. Cultures were collected including blood cultures, urine cultures and the patient is now going to be admitted for treatment of sepsis secondary to infectious source from urinary tract infection, probable pyelonephritis and complications from atrial fibrillation with rapid ventricular response requiring ongoing therapy. She was admitted in fair but stable condition. PAST MEDICAL HISTORY: 1. Atrial fibrillation on chronic anticoagulation with Coumadin therapy. 2. History of congestive heart failure with no current echocardiogram available at time of admission. 3. Diabetes mellitus, type 2, on Lantus and oral therapy. 4. Dementia. 5. Gastroesophageal reflux disease. 6. Hypertension. PAST SURGICAL HISTORY: 1. Left total knee arthroplasty. MEDICATIONS: 1. Coumadin 5 mg daily. 2. Ramipril 5 mg daily. 3. Pravastatin 40 mg daily. 4. Potassium chloride 10 mEq daily. 5. Dilantin 100 mg t.i.d. 6. Multivitamins with minerals 1 tablet daily. 7. Metoprolol succinate extended release 50 mg daily. 8. Lantus 17 units daily. 9. Lasix 40 mg daily. 10. Digoxin 0.125 mg daily. 11. Tylenol #3 with codeine 1 q.4h. as needed for pain. ALLERGIES: NO KNOWN DRUG ALLERGIES. FAMILY HISTORY: Noncontributory. SOCIAL HISTORY: She is a nonsmoker. She is retired and lives at [facility]. REVIEW OF SYSTEMS: CONSTITUTIONAL: Positive for general malaise, fevers and weakness. HEENT: Negative for sore throats, earaches, nasal congestion, vision changes. RESPIRATORY: Positive for coughing. Denies any shortness of breath, wheezing or hemoptysis. CARDIOVASCULAR: Negative for chest pain or syncopal episodes. Positive for palpitations and history of atrial fibrillation with rapid ventricular response. GASTROINTESTINAL: Positive for suprapubic discomfort. Negative for nausea, vomiting, diarrhea. GENITOURINARY: As noted in history of present illness. MUSCULOSKELETAL: Recent pelvic fracture, stable. SKIN: Negative for rashes, lesions or sores. NEUROLOGIC: Positive for delirium. Negative for ataxia or seizures or focal neurologic deficits. PHYSICAL EXAMINATION: VITAL SIGNS: Temperature 100.3. Pulse 124. Blood pressure 120/82. Respirations 20. Oxygen saturation 98% on room air. GENERAL: On admission to the Medical/Surgical Floor, the patient is very pleasant, a little confused, but reoriented with family present at bedside. She is slow to answer questions, but appears to be appropriate, but does look frail and ill-appearing. HEENT: Tympanic membranes clear bilaterally. Oropharynx is pink, moist without any lesions. NECK: Supple, nontender with full range of motion. No jugular venous distention noted. RESPIRATORY: Lung sounds diminished throughout with some bibasilar rales. No wheezing or rhonchi. CARDIOVASCULAR: Slightly irregular rate and rhythm with 1 to 2+ pitting bilaterally of lower extremities. ABDOMEN: Obese, but soft with diffuse discomfort over the suprapubic region. No rebound tenderness, no guarding, no point tenderness, no peritoneal signs. RECTAL: Deferred. BACK: Without any CVA tenderness or vertebral tenderness. EXTREMITIES: There is no cyanosis, clubbing, but do show 1 to 2+ edema bilaterally. NEUROLOGIC: Cranial nerves II-XII are grossly intact. Facial features are symmetrical. Extraocular movements are within normal limits. Her mentation was somewhat delirious state, but she was easily reoriented, but became easily confused and was slow to answer questions, but according to family members, the patient is not at neurological baseline. She continues to be confused. SKIN: [place], warm and dry. LABORATORY: White count shows leukocytosis of 26,000, hemoglobin 10.5, hematocrit 31.0, platelet count 235,000, differential with left shift with 30% bands. Coagulation studies showed PT 21.6 with INR 2.18 and PTT 32.5. Chemistries showed low sodium of 125, potassium 4.4. Other electrolytes within normal limits. Osmolality low at 265. Lactic acid normal at 2.2. Magnesium 1.4. She got 2 grams of magnesium in the Emergency Room. Total bilirubin 2.0. Other liver functions within normal limits. BNP elevated at 1010 with troponin 0.82. TSH normal at 4.93. Urinalysis showed 100 protein, 500 glucose, small amount of leukocytosis. Microscopic revealed 3 to 5 RBCs with too numerous to count WBCs and 4+ bacteria. MICROBIOLOGY: Blood culture pending. Urine culture pending. RADIOLOGY: Abdominal x-ray on admission and per radiologic interpretation there was nonspecific bowel gas pattern, diffuse interstitial infiltrates and small pleural effusions. Please see that report for details. She also had a knee x- ray that showed no acute findings with orthopedic hardware in place. Abdominopelvic CT with contrast per radiologic interpretation showed distended bladder and dilation of both ureters without discrete stones. There was note of bilateral pleural clinically stable and mild anasarca, subacute pelvic fractures again visualized. ASSESSMENT: 1. Sepsis with concerns for bacteremia with source identified as underlying urinary tract infection complicated by pyelonephritis bilaterally. 2. Bilateral pyelonephritis with acute urinary retention, likely etiology of infection with cultures pending. 3. Atrial fibrillation with rapid ventricular response requiring initiation of medication treatment for rate control with the patient being on chronic Coumadin therapy with therapeutic INR. 4. Acute exacerbation of congestive heart failure, uncertain etiology, with the patient having elevated BNP on admission. 5. Elevated troponin without any evidence of acute injury and without chest pains, likely due to elevated BNP from her stress response from sepsis with some leakage of troponin resulting in bumped up troponin from baseline, requiring ongoing telemetry and further monitoring. 6. Mild hyponatremia, likely chronic, requiring ongoing monitoring and management. 7. Recent nondisplaced pubic rami fractures and left acetabular fracture, currently on ongoing physical therapy. 8. Chronic hypertension. 9. Diabetes mellitus, type 2. 10. Chronic dementia. PLAN: The patient is going to be admitted for underlying treatment of atrial fibrillation with rapid ventricular response and pyelonephritis with concerns for bacteremia with cultures pending. She has been started on antibiotics in the Emergency Room initially with Zosyn. This will be changed to meropenem and renally dosed at 1 gram q.12h. as well as initiation of vancomycin given the patient's recent hospitalizations and stays in long-term care facilities. She will be on DVT prophylaxis per protocol. She is on insulin sliding scale per protocol. I will resume her home medications once those are updated and verified. We will anticipate her length of stay to be 1 to 2 days. We will repeat labs in the morning. Until she can transition to outpatient management, we will continue to treat with antibiotics for the underlying pyelonephritis utilizing vancomycin and meropenem. Once able to continue with therapy here, we will order an evaluation for continued treatment. Until she can transition to other problems management, we will continue to monitor and treat as needed. #[id number] [facility]
[2019-01-16] MEDS ORDERED: ACETAMINOPHEN 325 MG TAB PO PRN (22:01)
[2019-01-16] MEDS ORDERED: ONDANSETRON INJ 4 MG/2 ML VIAL IV PRN (22:01)
[2019-01-16] MEDS ORDERED: SODIUM CHLORIDE 0.9% (FLUSH) 10 ML SYG IV PRN (22:01)
[2019-01-16] MEDS ORDERED: VANCOMYCIN HCL INJ 1,250 MG in SODIUM CHLORIDE 0.9% 250ML 250 ML IVPB ONE (22:10)
[2019-01-16] MEDS ORDERED: GLUCAGON INJ 1 MG VIAL SUBCU PRN (22:13)
[2019-01-16] MEDS ORDERED: DEXTROSE 50% 25 GM/50 ML SYG IV PRN (22:13)
[2019-01-16] MEDS ORDERED: SODIUM CHL 0.9% 50ML MIN-BAG+ 50 ML IVPB ONE (22:20)
[2019-01-16] MEDS ORDERED: MEROPENEM 1 GM VIAL IVPB ONE (22:20)
[2019-01-16] MEDS ORDERED: VANCOMYCIN HCL INJ 500 MG VIAL ONE (22:20)
[2019-01-16] MEDS ORDERED: SODIUM CHLORIDE 0.9% 250ML 250 ML ONE (22:20)
[2019-01-16] MEDS ORDERED: VANCOMYCIN HCL INJ 1,000 MG VIAL IVPB ONE (22:20)
[2019-01-16] MEDS ORDERED: ENOXAPARIN SODIUM 30 MG/0.3 ML SYG SUBCU SCH (22:30)
[2019-01-16] MEDS ORDERED: IV SET AND CAP CHANGE INJ INJ SCH (22:30)
[2019-01-17] MEDS: MEROPENEM 1 GM in SODIUM CHL 0.9% 50ML MIN-BAG+ 50 ML IVPB SCH ×2 (00:48→09:29)
[2019-01-17] MEDS: INSULIN LISPRO 100 UNITS/ML PEN SUBCU SCH ×5 (07:34→16:31)
[2019-01-17] MEDS ORDERED: INSULIN DETEMIR 100 UNITS/ML PEN SUBCU ONE ×3 (07:39→11:41)
[2019-01-17] MEDS ORDERED: VANCOMYCIN PER PHARMACY INJ SCH (08:00)
[2019-01-17] MEDS ORDERED: METOPROLOL SUCCINATE XL 50 MG TAB PO SCH (09:00)
[2019-01-17] MEDS ORDERED: RAMIPRIL 5 MG CAP PO SCH (09:00)
[2019-01-17] MEDS ORDERED: FUROSEMIDE INJ 40 MG/4 ML VIAL IV SCH (09:00)
[2019-01-17] MEDS ORDERED: DIGOXIN 0.125 MG TAB PO SCH (09:00)
[2019-01-17] MEDS ORDERED: MULTIPLE VITAMINS W/ MINERALS 1 EA TAB PO SCH (09:00)
[2019-01-17] MEDS ORDERED: POTASSIUM CHLORIDE 10 MEQ TAB PO SCH (09:00)
[2019-01-17] MEDS ORDERED: INSULIN DETEMIR 100 UNITS/ML PEN SUBCU SCH (09:00)
[2019-01-17] MEDS ORDERED: SODIUM CHL 0.9% 50ML MIN-BAG+ 50 ML IVPB ONE (09:18)
[2019-01-17] MEDS ORDERED: MEROPENEM 1 GM VIAL IVPB ONE (09:19)
[2019-01-17] MEDS: PHENYTOIN SODIUM CAP EXTENDED 100 MG CAP PO SCH ×2 (09:29→14:57)
[2019-01-17] MEDS ORDERED: INSULIN LISPRO 100 UNITS/ML PEN SUBCU ONE ×2 (10:08→18:08)
[2019-01-17] MEDS ORDERED: WARFARIN SODIUM 5 MG TAB PO SCH (12:00)
[2019-01-17] MEDS ORDERED: SODIUM CHLORIDE 0.9% 500ML 500 ML ONE (15:00)
[2019-01-17] MEDS ORDERED: METOPROLOL TARTRATE INJ 5 MG/5 ML VIAL IV ONE ×3 (15:04→17:24)
[2019-01-17] MEDS ORDERED: SODIUM CHLORIDE 0.9% 500ML 500 ML IVS ONE (15:05)
[2019-01-17] MEDS ORDERED: KCL 20 MEQ/NS 1,000 ML IVS ONE (15:45)
[2019-01-17] MEDS ORDERED: KCL 20 MEQ/NS 1,000 ML IVS PRN (15:58)
[2019-01-17] MEDS ORDERED: diltiaZEM DRIP 125 MG in SODIUM CHLORIDE 0.9% 100ML 100 ML IVPB SCH (16:00)
[2019-01-17] MEDS ORDERED: SODIUM CHLORIDE 0.9% 100ML 100 ML IVPB ONE ×2 (16:19→16:50)
[2019-01-17] MEDS ORDERED: diltiaZEM DRIP 125 MG/25 ML VIAL IVPB ONE ×2 (16:19→16:50)
[2019-01-17 18:30] VITALS: BP 110/71; TEMP 98.6; O2SAT 99
[2019-01-17] MEDS ORDERED: NOREPINEPHRINE BITARTRATE 4 MG/4 ML VIAL IVPB ONE (19:45)
[2019-01-17] MEDS ORDERED: SODIUM CHLORIDE 0.9% 250ML 0 ML ONE (19:46)
[2019-01-17] MEDS ORDERED: DEXTROSE 5% 250ML 250 ML ONE (19:49)
--- NOTE | 2019-01-17 19:56 | PN ---
DATE: 01/17/19 SUPERVISING PHYSICIAN: Burt Rojas M.D. SUBJECTIVE: The patient notes that she feels a little bit better this morning. She is not quite as drowsy and is much more alert than on admission. She has had some atrial fibrillation with rapid ventricular response requiring intervention with some additional medications, including Metoprolol as she was unable to tolerate Cardizem. She has been stable. No worsening shortness of breath. No nausea, vomiting or diarrhea. She continues to be without any chest pains. OBJECTIVE: VITAL SIGNS: Temperature 98, pulse 99 to 120, blood pressure 112/77, respirations 18, satting 94% on room air. I's and O's show a negative balance of 1875 with 650 in, 1525 out. Weight is at 75.9 kg which is essentially unchanged from admission. GENERAL: The patient appears to be in no acute distress. She is resting comfortably. Has no complaints. She is alert. CHEST: Lung sounds are clear bilaterally, just slightly diminished towards the bases. HEART: Slightly irregular rate and rhythm showing to be tachycardic on bedside monitor. ABDOMEN: Obese but soft, non-tender. Positive bowel sounds. EXTREMITIES: Show some improvement from admission and is down to 1+ edema bilaterally. NEUROLOGIC: She is alert and oriented to herself. Requires reorientation to place but appears to be back to her baseline mental status levels. SKIN: [place], warm and dry. LABORATORY: Show a decrease in leukocytosis with CBC showing a white count of 22,200. H&H is down to 8.9 and 26.4 respectively with platelet count 190,000. Differential continues to show a left shift and 24% bands but improved since admission. Coagulation studies showed an INR of 3.32. Chemistries continue to show a persistent hyponatremia, but her blood sugar on AM labs showed a blood sugar of 340 with correction of sodium from 120 to 127, potassium remains stable at 4.6, BUN 33, creatinine 1.55. Anion gap remains normal. Liver functions show just a slightly elevated bilirubin at 1.9. Troponin is down to 0.37. Digoxin level was 1.2. MICROBIOLOGY: Blood cultures continue to be negative since admission. Urine culture is pending. RADIOLOGY: No additional radiographic studies today. ASSESSMENT: 1. Sepsis secondary to urinary tract infection with bilateral pyelonephritis with concerns for bacteremia but blood cultures continue to show to be negative since admission. 2. Bilateral pyelonephritis secondary to acute urinary retention, uncertain etiology with cultures pending and urology consultation pending with Dr. Lugo. 3. Atrial fibrillation with rapid ventricular response with continued requirement for ongoing management with additional beta blockade for rate control with the patient being on chronic Coumadin therapy and showing to be therapeutic. 4. Acute exacerbation of congestive heart failure with reported last echocardiogram in 2019 with an ejection fraction of 65% and a grade 2 diastolic dysfunction. 5. Elevated troponin with no evidence of acute injury on EKG and no reported chest pains felt to be probably due to elevated BNP from stress response from rapid ventricular response of her atrial fibrillation as well as complications from worsening renal function due to urinary retention and acute pyelonephritis with levels returning to baseline. 6. Hyponatremia, likely chronic and exacerbated by polydipsia and diuretic usage requiring ongoing replacement. 7. Recent nondisplaced pubic rami fractures and left acetabular fracture, currently on physical therapy. 8. Chronic hypertension showing to be stable. 9. Diabetes mellitus, type 2 with elevated blood sugars complicated by corticosteroid administration on admission and underlying infectious process requiring aggressive management. 10. Chronic dementia. PLAN: Will continue with current plan of care at this point with vancomycin and Meropenem, and follow cultures including blood and urine. Once those cultures are completed and available will target antibiotic therapy as appropriate. She remains on DVT prophylaxis with Coumadin and she is showing INR to be therapeutic. Will continue to monitor her INR levels. Will continue to treat her atrial fibrillation with additional Lopressor as needed as she was unable to tolerate Cardizem and is already on digoxin with a therapeutic level on admission. I have requested a consultation with cardiology with Dr. Foster in the morning as well as she will need a urology consultation this coming Thursday with Dr. Lugo. She is on every 4 hours sliding scale insulin and is getting long-acting insulin in the form of Levemir. Will monitor her BMPs every 4 hours until she shows to be stable. Until she can transition to outpatient management will continue to monitor and treat as needed. #[id number] [facility]
[2019-01-17] MEDS ORDERED: EPINEPHrine INJ 0.1 MG/ML 10 ML SYG IV ONE (20:00)
[2019-01-17] MEDS ORDERED: SODIUM CHLORIDE 0.9% 1000ML 1,000 ML IVS ONE (20:00)
[2019-01-17] MEDS ORDERED: ETOMIDATE INJECTION 2 MG/ML 20ML VIAL IV ONE (20:00)
[2019-01-17] MEDS ORDERED: WATER FOR INJ 10 ML VIAL INJ ONE (20:00)
[2019-01-17] MEDS ORDERED: VECURONIUM BROMIDE 10 MG VIAL IV ONE (20:00)
[2019-01-17] MEDS ORDERED: PRAVASTATIN SODIUM 20 MG TAB PO SCH (21:00)
--- NOTE | 2019-01-18 08:48 | PN ---
SUPERVISING PHYSICIAN: Burt Rojas MD DATE: 01/17/19 SUBJECTIVE: I was called by the oncoming charge nurse at night at shift change and the patient was found lethargic, only responding to deep sternal rubs. I presented to the patient's room and on examination, the patient was found to be diaphoretic and obtunded. On examination, I was unable to find a pulse. At that point, CPR was started and Code Blue was initiated. OBJECTIVE: VITAL SIGNS: Initial blood pressure on initiation of Code was unobtainable secondary to the patient was in a PEA rhythm. ACLS protocols were initiated at that point. Please refer to the Code Blue sheet and chart in electronic medical records for full details of the vital signs. After the patient had returned to spontaneous circulation and on packaging and prior to transfer, the patient was showing temperature 98.6., pulse 99, blood pressure 110/71, respirations via ET tube and bag valve mask with saturations of 94% with end tidal CO2 of 28 to 34. GENERAL APPEARANCE: The patient was initially found to be obtunded and diaphoretic. GENERAL EXAM: After CPR and ACLS protocols were initiated and she returned to spontaneous circulation, the patient was noted to be unresponsive on manual ventilation via bag valve mask and the patient was sedated and paralyzed with succinylcholine, Etomidate and Ativan. Breath sounds after intubation were heard bilaterally in all 4 quadrants with end tidal 34 initially after intubation. A 7.0 ET tube was placed by Dr. Terry. Chest film was obtained showing good placement of ET tube. ABDOMEN: Soft, nondistended. Positive bowel sounds. EXTREMITIES: Just a trace of edema bilaterally. NEUROLOGIC: As noted, the patient was paralyzed and sedated for intubation. LABORATORY: White count 38,700, hemoglobin 10.4, hematocrit 31.3, platelet count 222,000, differential did show a left shift. Chemistries showed sodium 123, blood sugar 98, BUN 43, creatinine 1.95. BNP was down to 387, troponin 0.51, CPK 45, calcium 8.4, magnesium 2.0. RADIOLOGY: Post intubation chest film showed possible left mainstem intubation. The tube was pulled back and secured as noted in the Code Blue sheet with the patient having good breath sounds again with vital signs showing end tidal of between 28 and 34, saturation in the mid-90s. EKG: EKG on bedside monitor showed atrial fibrillation with rapid ventricular response prior to initiation of CPR. After full assessment, the patient was found to be in PEA. After a single dose of epinephrine, the patient had returned to spontaneous circulation and was showing again atrial fibrillation with a rapid ventricular response secondary to the recent administration of epinephrine. ASSESSMENT: 1. Cardiopulmonary arrest requiring initiation of ACLS protocols with successful return of circulation and the patient requiring intubation and transfer to [facility], [place] for higher level of care. Etiology of cardiopulmonary arrest uncertain at this point, likely due to complications from underlying sepsis from bilateral pyelonephritis. 2. Sepsis secondary to urinary tract infection with bilateral pyelonephritis with concerns for bacteremia but blood cultures continue to show to be negative since admission. 3. Bilateral pyelonephritis secondary to acute urinary retention, uncertain etiology with cultures pending and urology consultation pending with Dr. Lugo. 4. Atrial fibrillation with rapid ventricular response with continued requirement for ongoing management with additional beta blockade for rate control with the patient being on chronic Coumadin therapy and showing to be therapeutic. 5. Acute exacerbation of congestive heart failure with reported last echocardiogram in 2019 with an ejection fraction of 65% and a grade 2 diastolic dysfunction. 6. Elevated troponin with no evidence of acute injury on EKG and no reported chest pains felt to be probably due to elevated BNP from stress response from rapid ventricular response of her atrial fibrillation as well as complications from worsening renal function due to urinary retention and acute pyelonephritis with levels returning to baseline. 7. Hyponatremia, likely chronic and exacerbated by polydipsia and diuretic usage requiring ongoing replacement. 8. Recent nondisplaced pubic rami fractures and left acetabular fracture, currently on physical therapy. 9. Chronic hypertension showing to be stable. 10. Diabetes mellitus, type 2 with elevated blood sugars complicated by corticosteroid administration on admission and underlying infectious process requiring aggressive management. 11. Chronic dementia. PLAN: The patient was stabilized post cardiopulmonary arrest and noted PEA requiring initiation of CPR, intubation and ACLS protocols. Please see that full report on the Code Blue sheet for full details of times and drug administration and dosing. Dr. Terry was gracious enough to assist with intubation and was able to secure a 7.0 ET tube via GlideScope. Breath sounds were notably present in all four lung zones with no epigastric sounds. The patient was showing end tidal of 34, saturations in the mid-90s. A chest film was obtained showing good placement. The patient was given 1 liter of normal saline and started on Levophed drip. Transportation was secured via air ambulance after the patient was accepted in transfer to [facility], [place] for higher level of care. She was given a single dose of Levaquin 750 mg at transport. The patient was transferred via air ambulance in critical, but stable condition. Prior to transfer, Dr. Rojas, supervising physician, was notified of plan of care and was available for consultation at all times. Please refer to the nurses notes for details of the Code Blue documentation. #[id number] [facility]
--- NOTE | 2019-01-18 08:57 | DS ---
SUPERVISING PHYSICIAN: Burt Rojas MD ADMISSION DIAGNOSIS: 1. Sepsis with concerns for bacteremia with source identified as underlying urinary tract infection complicated by pyelonephritis bilaterally. 2. Bilateral pyelonephritis with acute urinary retention, likely etiology of infection with cultures pending. 3. Atrial fibrillation with rapid ventricular response requiring initiation of medication treatment for rate control with the patient being on chronic Coumadin therapy with therapeutic INR. 4. Acute exacerbation of congestive heart failure, uncertain etiology, with the patient having elevated BNP on admission. 5. Elevated troponin without any evidence of acute injury and without chest pains, likely due to elevated BNP from her stress response from sepsis with some leakage of troponin resulting in bumped up troponin from baseline, requiring ongoing telemetry and further monitoring. 6. Mild hyponatremia, likely chronic, requiring ongoing monitoring and management. 7. Recent nondisplaced pubic rami fractures and left acetabular fracture, currently on ongoing physical therapy. 8. Chronic hypertension. 9. Diabetes mellitus, type 2. 10. Chronic dementia. DISCHARGE DIAGNOSIS: 1. Cardiopulmonary arrest requiring initiation of ACLS protocols with successful return of circulation and the patient requiring intubation and transfer to [facility] for higher level of care. Etiology of cardiopulmonary arrest uncertain at this point, likely due to complications from underlying sepsis from bilateral pyelonephritis. 2. Sepsis secondary to urinary tract infection with bilateral pyelonephritis with concerns for bacteremia but blood cultures continue to show to be negative since admission. 3. Bilateral pyelonephritis secondary to acute urinary retention, uncertain etiology with cultures pending and urology consultation pending with Dr. Lugo. 4. Atrial fibrillation with rapid ventricular response with continued requirement for ongoing management with additional beta blockade for rate control with the patient being on chronic Coumadin therapy and showing to be therapeutic. 5. Acute exacerbation of congestive heart failure with reported last echocardiogram in 2019 with an ejection fraction of 65% and a grade 2 diastolic dysfunction. 6. Elevated troponin with no evidence of acute injury on EKG and no reported chest pains felt to be probably due to elevated BNP from stress response from rapid ventricular response of her atrial fibrillation as well as complications from worsening renal function due to urinary retention and acute pyelonephritis with levels returning to baseline. 7. Hyponatremia, likely chronic and exacerbated by polydipsia and diuretic usage requiring ongoing replacement. 8. Recent nondisplaced pubic rami fractures and left acetabular fracture, currently on physical therapy. 9. Chronic hypertension showing to be stable. 10. Diabetes mellitus, type 2 with elevated blood sugars complicated by corticosteroid administration on admission and underlying infectious process requiring aggressive management. 11. Chronic dementia. REASON FOR ADMISSION: Ms. Sorensen is an 83-year-old, female patient who currently resides at [facility]. She did sustain a pelvis fracture in the previous month and was admitted to the hospital here on 12/01/18. She was discharged on 12/04/18 to [facility]. She did fairly well and went home this past Thursday. Over the week, she had some episodes of weakness and falls and difficulties at home. She was seen on the office by Dr. Scott on Thursday who recommended she go back into the skilled nursing for continued rehabilitation efforts. At that point, she was readmitted to [facility]. Today, she presented to the Emergency Room via 911 after she started having complaints of shortness of breath and rapid heart rate. She does have a history of atrial fibrillation on digoxin, Coumadin as well as metoprolol for rate control. She is also a type 2 diabetic. In the Emergency Room today, her initial vital signs showed she had a heart rate of 124. Blood pressure was 120/82. Oxygen saturation 99% on room with respirations 20. EKG at that time showed atrial fibrillation with rapid ventricular response. No definitive ST segment changes concerning for ischemia were noted. Laboratory studies showed she had an elevated BNP at 1010 with a troponin of 0.82. Sodium was noted to be low at 125. Glucose 264, magnesium 1.4. CBC showed a significant leukocytosis of 26,900 with 30% bands. She was febrile initially on admission with temperature of 100.3. She was also having some suprapubic abdominal pain and at that point, abdominopelvic CT was completed after abdominal x-ray was without any significant findings and per radiologic interpretation of a noncontrast CT, there was note of distended bladder and dilation of both ureters without discrete stones. At that point, Martin catheter was placed resulting in over 1200 mL of urine output. Urinalysis showed microscopic to have 3 to 5 RBCs, too numerous to count WBCs and 4+ bacteria with moderate amount of blood, negative nitrites, small leukocyte esterase, 500 of glucose with 100 of protein. Coagulation studies showed she had INR 2.18. Digoxin level was therapeutic at 1.2 and Dilantin 3.1. Influenza A and B by PCR was negative. She was also having some left knee pain and this was followed up with an x-ray of her knee which showed orthopedic hardware in place, no acute osseous abnormalities, just a small join effusion with some soft tissue swelling. Given her degree of leukocytosis, confusion on admission, tachycardia with atrial fibrillation with rapid ventricular response and concerns for developing pyelonephritis given CT findings and urinalysis, the patient was started on treatment with antibiotics with Zosyn and given a dose of metoprolol which did result in correction of her heart rate to 50 to 70s. Blood pressure was stable at 102/62. Cultures were collected including blood cultures, urine cultures and the patient is now going to be admitted for treatment of sepsis secondary to infectious source from urinary tract infection, probable pyelonephritis and complications from atrial fibrillation with rapid ventricular response requiring ongoing therapy. She was admitted in fair but stable condition. LABORATORY: On admission, CBC showed a white count of 26,900 with left shift, 30% bands. After initiation of antibiotic therapy, she did have improvement with white count going down to 22,200 with bands decreasing to 24%. After cardiopulmonary arrest and repeat laboratory studies, white count was at 38,700, hemoglobin stable 10.4 and hematocrit 31.3, platelet count 222,000. Differential continued to show a left shift. Coagulation studies showed initial INR of 2.18. On discharge, it was 3.32. Chemistries initially on admission showed sodium 125, glucose 264, anion gap normal at 17, BUN 23, creatinine 1.24. Initial troponin 0.82. Initial BNP 1010. Liver functions were within normal limits. Prior to transfer and discharge, repeat troponin was 0.51, BNP down to 387. After initiation of treatment, fluids and more aggressive management, prior to discharge her sodium was 123, potassium 4.1, anion gap high 18, carbon dioxide low at 18, BUN 43, creatinine 1.95. Blood sugars were fairly erratic initially on admission ranging from maximum of 430 down to 98 at discharge. Urinalysis on admission showed 100 protein, 500 glucose, moderate amount of blood, small amount of leukocyte esterase. Microscopic revealed 3 to 5 RBCs, too numerous to count WBCs, 1 to 3 epithelials, 4+ bacteria. Dilantin level was 3.1. Digoxin level was 1.2. MICROBIOLOGY: Blood cultures were negative at 24 hours. Urine culture was pending. Influenza A and B by PCR was negative. RADIOLOGY: Initial radiographic studies included abdominal x-ray on admission showing nonspecific bowel gas pattern with diffuse interstitial infiltrates having developed and small pleural effusions. She also had abdominopelvic CT without contrast and per radiologic interpretation, there was note of distended bladder, dilation of both ureters without discrete stone. There was bilateral pleural fluid collections with mild anasarca. Subacute pelvis fractures were again visualized. She also had a left knee x-ray. Please see that report for full details. No acute findings were noted. She had a chest x-ray post intubation which showed mild left mainstem intubation, but tube then repositioned post x-ray. The patient was transferred before reevaluation by x- ray was obtained. HOSPITAL COURSE: Initially on admission, the patient was showing progression with treatment with cefepime and vancomycin. On the morning of discharge, she was actually back to baseline mental status and labs were improving as far as white count. Blood sugars were fairly erratic, but were being better controlled with more aggressive management. She did have a few episodes of rapid ventricular response on her atrial fibrillation which required additional administration of medications to include initially Cardizem, which the patient was unable to tolerate due to hypotension. She was given fluid boluses. This was followed with additional dosing of metoprolol with good response with ventricular rate below 110. On the day of discharge, as noted in the last progress note, the patient had acute change in status resulting in cardiopulmonary arrest and initiation of Code Blue and ACLS protocols. She was able to have return of spontaneous circulation. She was stabilized and was accepted in transfer to [facility]. She was to be transferred via air ambulance. Please refer to more details on the last progress note for the Code Blue and critical care time. PLAN: The patient was transferred once she was stabilized after intubation. She was on Levophed, fluids and had airway in place and was stable, but critical. Acceptance was secured from [facility] and the patient was transferred to care via air ambulance to [facility] for higher level of care. DISPOSITION: The patient was discharged and transferred via air ambulance to [facility]. CONDITION AT DISCHARGE: Critical but stable. [facility][id number] [facility]
[2019-01-18] MEDS ORDERED: VANCOMYCIN HCL INJ 1,000 MG, VANCOMYCIN HCL INJ 250 MG in SODIUM CHLORIDE 0.9% 250ML 25... IVPB SCH (10:00)
== END 2019-01-17 21:00 | disposition short-term general hospital (02) | DRG 871 ==
LOC: ER 17:38 → MS 21:35
PROVIDERS: ADMIT Nurse Practitioner Family; ATTEND Nurse Practitioner Family
PROC: 0BH17EZ Insertion of Endotracheal Airway into Trachea, Via Natural or Artificial Opening (ICD-10-PCS; principal; 2019-01-17)
DX: A41.9 Sepsis, unspecified organism (principal); I46.8 Cardiac arrest due to other underlying condition; I50.33 Acute on chronic diastolic (congestive) heart failure; N12 Tubulo-interstitial nephritis, not specified as acute or chronic; E87.1 Hypo-osmolality and hyponatremia; R33.9 Retention of urine, unspecified; I48.91 Unspecified atrial fibrillation; Z79.01 Long term (current) use of anticoagulants; R74.8 Abnormal levels of other serum enzymes; I11.0 Hypertensive heart disease with heart failure; E11.65 Type 2 diabetes mellitus with hyperglycemia; F03.90 Unspecified dementia, unspecified severity, without behavioral disturbance, psychotic disturbance, mood disturbance, and anxiety; S32.599D Other specified fracture of unspecified pubis, subsequent encounter for fracture with routine healing; S32.402D Unspecified fracture of left acetabulum, subsequent encounter for fracture with routine healing; Z96.652 Presence of left artificial knee joint; Z79.4 Long term (current) use of insulin; Z79.899 Other long term (current) drug therapy; T50.2X5A Adverse effect of carbonic-anhydrase inhibitors, benzothiadiazides and other diuretics, initial encounter; Y92.9 Unspecified place or not applicable

== ENCOUNTER → 2019-09-14 | Outpatient (CLI) | payer MEDICARE | LOC: RAD 12:19 | PROVIDERS: ATTEND Orthopaedic Surgery | DX: N39.0 Urinary tract infection, site not specified (principal) ==

== ENCOUNTER 2019-09-24 13:28 | Emergency (ER) | payer MEDICARE, OTHER ==
[2019-09-24] MEDS ORDERED: ALBUTEROL SULFATE 2.5 MG/3 ML VIAL NEB ONE ×4 (13:29→15:13)
--- NOTE | 2019-09-24 13:59 | ED.PDOC ---
History of Present Illness - General Chief Complaint: General Stated Complaint: RLE pain x 2 days, Cyanosis Time Seen by Provider: 09/24/19 13:51 Source: patient, family Exam Limitations: other - dementia Additional Information: 83yo F with reported right leg pain x 2 days. Unclear history, but reported now previous fall or vascular issues. Unclear if on anticoagulation at this time. History limited secondary to dementia without collateral history available. - History of Present Illness Allergies/Adverse Reactions: Allergies NO KNOWN ALLERGY Allergy (Verified 09/24/19 13:49) Home Medications: Ambulatory Orders Digoxin [Digox] 0.125 mg PO DAILY 12/01/18 Furosemide Tab [Lasix Tab] 40 mg PO DAILY 12/01/18 Insulin Glargine 100U/ml [Lantus] 17 unit SUBCU DAILY 12/01/18 Metoprolol Succinate [Metoprolol Succinate ER] 50 mg PO DAILY 12/01/18 Multiple Vitamins W/ Minerals [Multivitamin Women] 1 tab PO DAILY 12/01/18 Phenytoin Sodium Extended 100 mg PO TID 12/01/18 Potassium Chloride [Potassium Chloride ER] 10 meq PO DAILY 12/01/18 Pravastatin Sodium 40 mg PO DAILY 12/01/18 Ramipril 5 mg PO DAILY 12/01/18 Warfarin Sodium 5 mg PO DAILY 12/01/18 Acetamin W/Cod #3 Tab [Tylenol w/CODEINE #3] 1 ea PO Q4H PRN 14 Days #90 tab 12/04/18 Meropenem [Merrem] 1 gm IVPB Q12HR vial 01/17/19 Vancomycin HCl Inj 250 mg IVPB Q36H vial 01/17/19 levoFLOXacin 750MG IV [Levaquin IV] 750 ea IV ONCE #1 bag 01/17/19 Review of Systems - Review of Systems Unable to Obtain Due To: dementia Past Medical History (General) - Patient Medical History Hx Seizures: No Hx Stroke: No Hx Dementia: Yes Hx Asthma: No Hx of COPD: No Hx Cardiac Disorders: Yes - Afib Hx Congestive Heart Failure: No Hx Pacemaker: No Hx Hypertension: Yes Hx Thyroid Disease: No Hx Diabetes: Yes Hx Gastroesophageal Reflux: Yes Hx Renal Disease: No Hx Cancer: Yes - Squamous cell Hx of HIV: No Hx Hepatitis C: No Hx MRSA: No Surgical History: cancer surgery - Vaccination History Hx Tetanus, Diphtheria Vaccination: No Hx Influenza Vaccination: Yes Hx Pneumococcal Vaccination: No - Social History Hx Tobacco Use: No Hx Chewing Tobacco Use: No Hx Alcohol Use: No Hx Substance Use: No Hx Substance Use Treatment: No Hx Depression: No Hx Physical Abuse: No Hx Emotional Abuse: No Hx Suspected Abuse: No - Activities of Daily Living Correction/Assisted Living (if applicable):: [facility] - Female History Patient is a Female of Child Bearing Age (10 -59 yrs old): No Patient : No Family Medical History - Family History Mother Family History: Unknown Living Status: Hx Cardiac Disease: Yes - mom Hx Family Cancer: Yes Father Living Status: Hx Family Stroke: Yes Hx Cardiac Disease: Yes Physical Exam - Physical Exam General Appearance: Alert, No apparent distress Neck: non-tender, full range of motion, supple Respiratory: chest non-tender, lungs clear, normal breath sounds Cardiovascular/Chest: no edema, irregularly irregular Peripheral Pulses: femoral,right: 2+, femoral,left: 2+, popliteal,right: 0, dorsalis pedis,right: 1+, dorsalis pedis,left: 2+, posterior tibialis,right: 0, posterior tibialis,left: 2+ Gastrointestinal/Abdominal: normal bowel sounds, non tender, soft Back Exam: normal inspection, no CVA tenderness Extremity: no pedal edema, other - RLE: cool to touch with cyanosis below knee; BLE: limited ROM secondary to pain with movement and prior injury Neurologic: gambling counsellor II-XII nml as tested Skin Exam: cyanosis - RLE cyanosis Progress - Progress Progress: 09/24/19 14:06 Discussed transfer with family at bedside, and he agreed with plan of care. Pending call to receiving hospital. 09/24/19 15:26 Patient initial potassium profoundly elevated, and repeat ordered. Albuterol started in meantime. Unfortunately, repeat potassium remained elevated. D50 and insulin written as well. However, D50 reportedly not available, so changed to d10 for 250mL. Coags not available at this time as lab reported analyzer machine was not working. Spoke with [facility] and patient reportedly not on anticoagulation. Transfer still pending EMS. 09/24/19 15:37 09/24/19 15:50 Left 20g external jugular peripheral IV placed by me. 09/24/19 16:16 Patient not hypoglycemic after insulin/Dextrose, and she completed albuterol. EMS available for transfer at this time. Patient with symptoms most concerning for arterial occlusion vs stenosis. Started on heparin infusion after lab issue and phone call to nursing facility to clarify anticoagulation status. Did not appear trauma. Remainder of extremities neurovascularly intact. Low suspicion for aortic pathology. Patient is DNR per family. Vladislav Max MD #[id number] - EKG/XRAY/CT EKG: Fibrillation Comments: 1352 afib rate 84, left axis, QTc normal, no acute ischemic changes Departure - Departure Clinical Impression: Leg pain, right, Hypoxemia, Arterial insufficiency of lower extremity Time of Disposition: 16:15 Disposition: Transfer to Hospital Condition: Serious Referrals: ANGELINE PARKER MD [Primary Care Provider] - 1-2 Weeks Home Medications: Ambulatory Orders Digoxin [Digox] 0.125 mg PO DAILY 12/01/18 Furosemide Tab [Lasix Tab] 40 mg PO DAILY 12/01/18 Insulin Glargine 100U/ml [Lantus] 17 unit SUBCU DAILY 12/01/18 Metoprolol Succinate [Metoprolol Succinate ER] 50 mg PO DAILY 12/01/18 Multiple Vitamins W/ Minerals [Multivitamin Women] 1 tab PO DAILY 12/01/18 Phenytoin Sodium Extended 100 mg PO TID 12/01/18 Potassium Chloride [Potassium Chloride ER] 10 meq PO DAILY 12/01/18 Pravastatin Sodium 40 mg PO DAILY 12/01/18 Ramipril 5 mg PO DAILY 12/01/18 Warfarin Sodium 5 mg PO DAILY 12/01/18 Acetamin W/Cod #3 Tab [Tylenol w/CODEINE #3] 1 ea PO Q4H PRN 14 Days #90 tab 12/04/18 Meropenem [Merrem] 1 gm IVPB Q12HR vial 01/17/19 Vancomycin HCl Inj 250 mg IVPB Q36H vial 01/17/19 levoFLOXacin 750MG IV [Levaquin IV] 750 ea IV ONCE #1 bag 01/17/19 Critical Care Note - Critical Care Note Total Time (mins): 40 Comments: ABNORMAL VITAL SIGNS, CONSULTATIONS, MULTIPLE RE-EVALUATIONS, AND CRITICAL NATURE OF COMPLAINT. PATIENT STABILIZED AND RESUSCITATED IN THE ED TO PREVENT IMMINENT DETERIORATION IN CONDITION OR . Transfer to Outside Facility - Transfer Information Decision to Transfer Date: 09/24/19 Decision to Transfer Time: 14:00 Reason for Transfer: required specialist not available - Vascular surgery for suspect arterial occlusion/insufficiency Accepting Provider:: Dr. Hopper Accepting Facility: [facility]
[2019-09-24] MEDS ORDERED: MORPHINE SULFATE INJ 10 MG/ML VIAL IV ONE (14:35)
--- NOTE | 2019-09-24 14:46 | RAD ---
EXAM: Femur,Right Right Femur two views HISTORY: Pain COMPARISON: CT lower extremity 01/09/2019 TECHNIQUE: Right femur two views-AP lateral FINDINGS: No evidence of fracture or dislocation. Diffuse decreased bone density. Marked medial and moderate lateral femorotibial compartment narrowing. Marked amount of vascular calcifications throughout pelvis and visualized right lower extremity. IMPRESSION: 1. No radiographic evidence of right femur fracture. 2. Marked diffuse osteopenia. Electronically signed by: Guillaume Malik MD 09/24/2019 2:45 PM [facility]
--- NOTE | 2019-09-24 14:55 | RAD ---
EXAM: Tibia/Fibula,Right Right Tibia/Fibula two views HISTORY: Pain COMPARISON: None TECHNIQUE: Right leg tibia/fibula- two views FINDINGS: No evidence of fracture or dislocation. Diffuse decreased bone density. Marked medial and lateral femorotibial compartment narrowing. Marked amount of vascular calcifications throughout visualized right lower extremity. IMPRESSION: 1. No radiographic evidence of right tibia/fibular fracture. 2. Diffuse osteopenia. 3. Marked medial and lateral right femorotibial compartment narrowing. Electronically signed by: Guillaume Malik MD 09/24/2019 2:53 PM [facility]
[2019-09-24] MEDS ORDERED: ALBUTEROL SULFATE NEBS (ED DISPENSE) 2.5 MG/3 ML VIAL NEB ONE (14:57)
[2019-09-24] MEDS ORDERED: SODIUM CHLORIDE 0.9% 1000ML 1,000 ML IVS PRN (14:59)
[2019-09-24] MEDS ORDERED: SODIUM CHLORIDE 0.9% 500ML 500 ML IVS ONE (14:59)
[2019-09-24] MEDS ORDERED: INSULIN, REG.(HUMAN) 100 U/ML VIAL IV ONE (15:24)
[2019-09-24] MEDS ORDERED: DEXTROSE 50% 25 GM/50 ML SYG IV ONE (15:24)
[2019-09-24] MEDS ORDERED: DEXTROSE 10% 500ML 500 ML ONE (15:31)
[2019-09-24] MEDS ORDERED: DEXTROSE 10% IVS ONE (15:31)
[2019-09-24] MEDS ORDERED: HEPARIN SODIUM (PORCINE) 5,000 U/ML VIAL IV ONE ×2 (15:42→15:56)
[2019-09-24] MEDS ORDERED: HEPARIN SODIUM (PORCINE) 5,000 U/ML VIAL SUBCU PRN ×2 (15:42→16:00)
[2019-09-24] MEDS ORDERED: HEPARIN PREMIX 25,000 UNITS in PREMIX BAG 1 BAG IVS SCH (15:45)
[2019-09-24] MEDS ORDERED: HEPARIN PREMIX 500 ML ONE (16:03)
[2019-09-24 16:27] VITALS: O2SAT 100
[2019-09-24 16:28] VITALS: BP 128/66; TEMP 97.3
== END 2019-09-24 16:28 | disposition short-term general hospital (02) ==
LOC: ER 13:28
DX: I73.9 Peripheral vascular disease, unspecified (principal); R09.02 Hypoxemia; M79.604 Pain in right leg; I48.91 Unspecified atrial fibrillation; R23.0 Cyanosis; F03.90 Unspecified dementia, unspecified severity, without behavioral disturbance, psychotic disturbance, mood disturbance, and anxiety; I10 Essential (primary) hypertension; E11.9 Type 2 diabetes mellitus without complications; K21.9 Gastro-esophageal reflux disease without esophagitis; Z85.828 Personal history of other malignant neoplasm of skin; Z79.01 Long term (current) use of anticoagulants; Z79.4 Long term (current) use of insulin; Z79.899 Other long term (current) drug therapy
CPT/HCPCS: 36415; 73551; 73590; 80053; 80162; 82550; 82948; 84132; 85025; 85610; 85730; 93005; 94640; J1644; J2270; J7040; J7611; J7799